=== PATIENT | female | born 1950 | race Caucasian/White ===

== ENCOUNTER 2016-05-18 07:30 | Inpatient (IN) | payer MEDICARE, BC ==
[~2016-05-18 07:30] MED LIST: Lactated Ringers 1,000 ML IV SCH; ceFAZolin 2 GM in Sodium Chloride 0.9% 100 ML IV ONE; ceFAZolin 2 GM in Sodium Chloride 0.9% 50 ML IV ONE
[2016-05-18] MEDS ORDERED: Ropivacaine 49.25 ML, Ketorolac 30 MG, EPINEPHrine 0.5 MG, cloNIDine 80 MCG, Sodium Chl... INJECT SCH ×5 (07:45)
[2016-05-18] MEDS ORDERED: Tranexamic Acid 1,000 MG in Sodium Chloride 0.9% 50 ML IV SCH (08:00)
[2016-05-18] MEDS ORDERED: Gentamicin 40 MG/ML 2 ML Vial ONE ×2 (08:44→08:50)
[2016-05-18] MEDS ORDERED: Propofol 200 MG/20 ML SDV ONE ×3 (09:15→10:27)
[2016-05-18] MEDS ORDERED: Midazolam 1 MG/ML 2 ML SDV ONE (09:15)
[2016-05-18] MEDS ORDERED: fentaNYL 100 MCG/2 ML SDV ONE (09:15)
[2016-05-18] MEDS ORDERED: Ondansetron 4 MG/2 ML SDV ONE (09:16)
[2016-05-18] MEDS ORDERED: Bisacodyl 5 MG Tab PO PRN (09:29)
[2016-05-18] MEDS ORDERED: Sennosides 8.6 MG Tab PO PRN (09:29)
[2016-05-18] MEDS ORDERED: Ketorolac 30 MG/ML SDV IVPUSH PRN (09:29)
[2016-05-18] MEDS ORDERED: Zolpidem 5 MG Tab PO PRN (09:29)
[2016-05-18] MEDS ORDERED: diphenhydrAMINE 50 MG/ML SDV IVPUSH PRN (09:29)
[2016-05-18] MEDS ORDERED: Docusate Sodium 100 MG Cap PO PRN (09:29)
[2016-05-18] MEDS ORDERED: Naloxone 0.4 MG/ML SDV IVPUSH PRN (09:29)
[2016-05-18] MEDS ORDERED: Bupivacaine 0.5% 50 ML MDV INJECT ONE (09:29)
[2016-05-18] MEDS ORDERED: Acetaminophen/oxyCODONE 325-5 MG Tab PO PRN (09:29)
[2016-05-18] MEDS ORDERED: Magnesium Hydroxide 400 MG/5 ML Susp 30 ML Cup PO PRN (09:29)
[2016-05-18] MEDS ORDERED: Morphine 2 MG/ML Syringe IVPUSH PRN (09:29)
[2016-05-18] MEDS ORDERED: Aluminum Hydroxide/Magnesium Hydroxide/Simethicone Susp 30 ML Cup PO PRN (09:29)
[2016-05-18] MEDS: Tranexamic Acid 1,000 MG in Sodium Chloride 0.9% 50 ML IV SCH ×2 (09:45→11:56)
[2016-05-18] MEDS ORDERED: ceFAZolin 2 GM in Premix Bag 1 BAG IV SCH ×2 (12:00→14:00)
--- NOTE | 2016-05-18 12:30 | CR ---
Knee 1V or 2V Lt HISTORY: Postop COMPARISON: MRI 04/26/2016. FINDINGS: Total left knee arthroplasty change. Excellent alignment. Tiny effusion. No acute fracture .
[2016-05-18] MEDS: Ketorolac 30 MG/ML SDV IVPUSH PRN ×2 (14:52→22:34)
[2016-05-18] MEDS: Ondansetron 4 MG/2 ML SDV IVPUSH PRN ×2 (15:22→21:17)
[2016-05-18] MEDS: traMADol 50 MG Tab PO PRN (15:55)
--- NOTE | 2016-05-18 16:06 | PCM.PN ---
- General Info Date of Service: 05/18/16 Functional Status: Reports: pain controlled - Review of Systems General: Denies: fever Musculoskeletal: Reports: joint pain Systems Review Comment:: no acute events since surgery other than a recent increase in her knee pain. Uneventful surgery. No complaints of shortness of breath or chest pain at this time. No numbness or tingling in her left lower extremity. She reports moderately severe pain at this time and has recently received a couple of different pain medications. Vital signs have been stable other than mild hypertension. - Patient Data Vitals - most recent: Last Vital Signs Temp 36.6 C 05/18/16 14:00 Pulse 83 05/18/16 14:59 Resp 16 05/18/16 14:30 BP 197/90 H 05/18/16 14:59 Pulse Ox 99 05/18/16 14:59 Weight - most recent: 104.071 kg I&O - last 24 hours: Intake & Output 05/18/16 05/18/16 05/18/16 06:59 14:59 22:59 Output Total 150 Balance -150 Lab Results last 24 hrs: Laboratory Results - last 24 hr 05/18/16 Range/Units 08:35 Blood Type O POSITIVE Gel Antibody Screen Negative Med Orders - Current: Current Medications Al Hydroxide/Mg Hydroxide (Mag-Al Plus) 30 ml PO Q4H PRN PRN Reason: Constipation Aspirin (Ecotrin) 325 mg PO BID [facility] Bisacodyl (Dulcolax) 10 mg PO DAILY PRN PRN Reason: Constipation Diazepam (Valium) 5 mg IVPUSH Q6H PRN PRN Reason: Spasms Diphenhydramine HCl (Benadryl) 25 mg IVPUSH Q4H PRN PRN Reason: Itching Docusate Sodium (Colace) 100 mg PO BID PRN PRN Reason: Constipation Lactated Ringer's (Ringers, Lactated) 1,000 mls @ 100 mls/hr IV ASDIRECTED [facility] Cefazolin Sodium 2 gm/ Sodium (Chloride) 50 mls @ 100 mls/hr IV Q8H [facility] Stop: 05/19/16 09:29 Ketorolac Tromethamine (Toradol) 30 mg IVPUSH Q8H PRN PRN Reason: Pain Stop: 05/23/16 09:32 Last Admin: 05/18/16 14:52 Dose: 30 mg Magnesium Hydroxide (Milk Of Magnesia) 30 ml PO BID PRN PRN Reason: Constipation Morphine Sulfate (Morphine) 2 mg IVPUSH Q2H PRN PRN Reason: Pain Last Admin: 05/18/16 14:56 Dose: 2 mg Non-Formulary Medication (Losartan [Cozaar]) 100 mg PO DAILY [facility] Ondansetron HCl (Zofran) 8 mg IVPUSH Q4H PRN PRN Reason: Nausea/Vomiting Last Admin: 05/18/16 15:22 Dose: 8 mg Oxycodone/Acetaminophen (Percocet 325-5 Mg) 2 tab PO Q4H PRN PRN Reason: Pain Pantoprazole Sodium (Protonix) 40 mg PO ACBREAKFAST [facility] Senna (Senna) 8.6 mg PO BID PRN PRN Reason: Constipation Sodium Chloride (Saline Flush) 10 ml FLUSH DAILY [facility] Tramadol HCl (Ultram) 100 mg PO Q6H PRN PRN Reason: Pain Last Admin: 05/18/16 15:55 Dose: 100 mg Zolpidem Tartrate (Ambien) 5 mg PO BEDTIME PRN PRN Reason: Sleep Discontinued Medications Aspirin (Ecotrin) 325 mg PO BID [facility] Bupivacaine HCl (Marcaine 0.5%) 3 ml INJECT ONETIME ONE Stop: 05/18/16 09:30 Ropivacaine 49.25 ml/Ketorolac Tromethamine 30 mg/Epinephrine HCl 0.5 mg/ Clonidine HCl 80 mcg/ Sodium Chloride 48.45 ml 0 ml INJECT ASDIRECTED [facility] Stop: 05/18/16 09:30 Last Admin: 05/18/16 11:17 Dose: 100 syringe Fentanyl (Sublimaze) Confirm Administered Dose 100 mcg .ROUTE .STK-MED ONE Stop: 05/18/16 09:16 Gentamicin Sulfate (Gentamicin) Confirm Administered Dose 240 mg .ROUTE .STK- MED ONE Stop: 05/18/16 08:45 Gentamicin Sulfate (Gentamicin) Confirm Administered Dose 240 mg .ROUTE .STK- MED ONE Stop: 05/18/16 08:51 Last Admin: 05/18/16 10:14 Dose: 240 mg Lactated Ringer's (Ringers, Lactated) 1,000 mls @ 100 mls/hr IV ASDIRECTED [facility] Last Admin: 05/18/16 09:01 Dose: 100 mls/hr Cefazolin Sodium 2 gm/ Sodium (Chloride) 50 mls @ 100 mls/hr IV ONETIME ONE Stop: 05/18/16 07:59 Last Admin: 05/18/16 09:35 Dose: 100 mls/hr Tranexamic Acid 1,000 mg/ (Sodium Chloride) 60 mls @ 240 mls/hr IV Q3H [facility] Stop: 05/18/16 12:14 Last Admin: 05/18/16 11:56 Dose: 240 mls/hr Cefazolin Sodium/Dextrose 2 gm (/ Premix) 50 mls @ 100 mls/hr IV Q8H [facility] Stop: 05/19/16 04:29 Ketorolac Tromethamine (Toradol) 30 mg IVPUSH Q8H PRN PRN Reason: Pain Stop: 05/23/16 09:32 Midazolam HCl (Versed 1 Mg/Ml) Confirm Administered Dose 2 mg .ROUTE .STK-MED ONE Stop: 05/18/16 09:16 Naloxone HCl (Narcan) 0.1 mg IVPUSH ASDIRECTED PRN PRN Reason: Oversedation Stop: 05/18/16 09:30 Ondansetron HCl (Zofran) Confirm Administered Dose 4 mg .ROUTE .STK-MED ONE Stop: 05/18/16 09:17 Oxycodone/Acetaminophen (Percocet 325-5 Mg) 2 tab PO Q4H PRN PRN Reason: Pain Propofol (Diprivan 20 Ml) Confirm Administered Dose 200 mg .ROUTE .STK-MED ONE Stop: 05/18/16 09:16 Propofol (Diprivan 20 Ml) Confirm Administered Dose 200 mg .ROUTE .STK-MED ONE Stop: 05/18/16 09:59 Propofol (Diprivan 20 Ml) Confirm Administered Dose 200 mg .ROUTE .STK-MED ONE Stop: 05/18/16 10:28 Triamcinolone Acetonide (Kenalog-40) 80 mg IARTIC ONETIME ONE Stop: 05/18/16 09:30 - Exam Quality Assessment: supplemental oxygen General: alert, oriented, cooperative, no acute distress Neck: supple Lungs: Normal respiratory effort Cardiovascular: murmurs Abdomen: soft, no distension Extremities: no edema, other (left knee wrapped with AL and covered with ice pack) Skin: warm, dry Psy/Mental Status: alert, normal affect - Problem List & Annotations (1) Essential hypertension SNOMED Code(s): 28599053 Code(s): I10 - ESSENTIAL (PRIMARY) HYPERTENSION Status: Chronic Current Visit: Yes (2) Primary osteoarthritis of left knee SNOMED Code(s): 393796040, 831516618 Code(s): M17.12 - UNILATERAL PRIMARY OSTEOARTHRITIS, LEFT KNEE Status: Chronic Current Visit: No - Problem List Review Problem List Initiated/Reviewed/Updated: Yes - My Orders Last 24 Hours: My Active Orders 05/19/16 07:30 Pantoprazole [Protonix] 40 mg PO ACBREAKFAST 05/19/16 09:00 Losartan [Cozaar] 100 mg PO DAILY amLODIPine [Norvasc] 5 mg PO DAILY - Plan Plan:: Assessment and Plan - Primary osteoarthritis of the left knee - status post left total knee arthroplasty. Pain has increased following surgery after the spinal anesthesia wore off. Clinically looks well otherwise. No neurologic deficits on examination. -Pain control -Postop cares per orthopedic service Essential hypertension - blood pressure well controlled by history. -Usual medications will be continued Breezy Chamberlain M.D.
[2016-05-18] MEDS: ceFAZolin 2 GM in Sodium Chloride 0.9% 50 ML IV SCH (16:55)
[2016-05-18] MEDS: Lactated Ringers 1,000 ML IV SCH (17:29)
--- NOTE | 2016-05-18 19:17 | OR ---
DATE OF PROCEDURE: 05/18/2016 PREOPERATIVE DIAGNOSIS: Left knee primary osteoarthritis. POSTOPERATIVE DIAGNOSIS: Left knee primary osteoarthritis. PROCEDURE: Left knee total knee arthroplasty. ACADEMIC SERVICES COORDINATOR: BEATRICE Cheng. ANESTHESIA: Spinal plus conscious sedation. ESTIMATED BLOOD LOSS: 50 mL. FLUID: Lactated Ringer solution. COMPLICATIONS: None. SPECIMEN: None. DISCHARGE DISPOSITION: Stable to PACU. INSTRUMENTATION: Andi Persona size 10 femur, size E tibia and 10 mm polyethylene insert. A 38 mm patella polyethylene. HISTORY AND INDICATIONS FOR THE PROCEDURE: The patient was seen preoperatively in the clinic. Preoperative imaging confirmed the above-mentioned diagnosis. She had failed nonoperative treatment. Risks and benefits of the procedure were explained to the patient. Informed consent was obtained. DETAILS OF PROCEDURE: The patient was seen preoperatively by myself and the anesthesia staff in the preoperative holding area where the operative site was marked. She was brought to the operative suite by the anesthesia staff where spinal anesthesia plus conscious sedation was administered. All extremities were found to be well padded. A sterile Bo catheter was placed. A well-padded tourniquet was placed on the left thigh. The left lower extremity was then prepped and draped in a sterile manner. Time-out was called identifying the correct patient, correct procedure, the correct site, and antibiotics had been given with appropriate period of time. A midline incision was made approximately 3.5 three fingerbreadths proximal to the patella down to the level of the tibial tubercle and carried down to the deep fascia. Bleeding was controlled with Bovie as well as Aquamantys cautery unit. A medial parapatellar arthrotomy was made. The medial proximal tibia was then exposed with Bovie electrocautery. I then performed infrapatellar fat pad removal followed by a full synovectomy. We then everted the tibia, then flexed the knee up and then removed some soft tissue around the patella and then made 2 perpendicular saw cuts to remove the patella. We then measured a 38 patella polyethylene. We then clamped our guide in place, drilled 3 holes then we placed the trial patella. We then flexed the knee up again and protecting soft tissues with 2 sharp Homans medially and laterally, reamed the distal femur and then inserted the intramedullary guide at 3 degrees valgus left. We then pinned the guide in place, then removed the intramedullary andrew then sawed our distal cut. We removed the guide plus our pins and then I removed the ACL and PCL as well as a portion of the medial and lateral meniscus and then placed our posterior condylar guide, this measured a size 10. I then drilled through the guide and then removed the guide and placed a 10 chamfer block and then protecting the medial collateral ligament with a zero retractor and lateral collateral ligament with a sharp Hohmann made our anterior and posterior chamfer cuts. After this had been accomplished, I then removed more the medial and lateral meniscus. I then used a blunt Hohmann to interiorize the tibia and then used an extramedullary guide to make our tibial cut in line with the tibial tubercle and 2nd metatarsal while protecting the soft tissues and the collateral ligaments with retractors. I then removed the proximal tibia bone with an osteotome and a rongeur as well as Bovie electrocautery. We then placed an E tibia base plate and put this in position, which was in good alignment and then we placed a femoral trial, this was found to be a regular femur. I then drilled the lugs and then made my distal block cut with a reciprocating saw. I then inserted our 10 mm polyethylene trial in tibia this provided excellent stability throughout 0 to 140 degrees range of motion. We then removed all of our components and copiously irrigated with saline, dried it and then applied our components with cement. I removed any extra cement. We placed our tibial polyethylene trial and in full extension while it dried. We took the tourniquet down at 42 minutes. Any bleeding was controlled. We then allowed this to dry and after drying, we then removed the tibial polyethylene trial and then using a small osteotome and Irma's removed any extra bone cement. I did take a great deal of time and put it through a range of motion to make sure that there was no bone cement left. After this has been accomplished, I inserted our 10 mm final polyethylene insert in the tibia, this provided excellent stability and excellent range of motion. We then copiously irrigated it again and then closed our parapatellar arthrotomy with two #5 Ethibond sutures followed by a watertight [id number] Vicryl pops, followed by 2-0 Vicryl subcutaneous sutures followed by a zip line, followed by sterile dressing. The patient was then taken to the PACU in stable condition. Topher Mcdaniel DO /[id number]
[2016-05-18] MEDS: Acetaminophen/oxyCODONE 325-5 MG Tab PO PRN (20:32)
[2016-05-18] MEDS ORDERED: Aspirin 325 MG Tab.EC PO SCH (21:00)
[2016-05-19] MEDS: ceFAZolin 2 GM in Sodium Chloride 0.9% 50 ML IV SCH ×2 (00:55→08:17)
[2016-05-19] MEDS: traMADol 50 MG Tab PO PRN ×2 (00:59→14:56)
[2016-05-19] MEDS: Ondansetron 4 MG/2 ML SDV IVPUSH PRN ×4 (03:02→19:38)
[2016-05-19] MEDS: Lactated Ringers 1,000 ML IV SCH ×2 (05:18→17:01)
[2016-05-19] MEDS: Pantoprazole 40 MG Tab.CR PO SCH (07:44)
[2016-05-19] MEDS: Sodium Chloride 0.9% 10 ML Syringe FLUSH SCH (08:13)
[2016-05-19] MEDS: Ketorolac 30 MG/ML SDV IVPUSH PRN ×2 (08:29→22:57)
[2016-05-19] MEDS ORDERED: Non-Formulary Medication 1 Each (Losartan [Cozaar] 100 MG) PO SCH (09:00)
[2016-05-19] MEDS ORDERED: Scopolamine 1.5 MG Transdermal Patch TRDERM SCH (10:15)
[2016-05-19] MEDS: Losartan 50 MG Tab PO SCH (10:50)
[2016-05-19] MEDS: Aspirin 325 MG Tab.EC PO SCH ×2 (10:50→21:11)
[2016-05-19] MEDS: amLODIPine 5 MG Tab PO SCH (10:51)
--- NOTE | 2016-05-19 16:03 | PCM.PN ---
- General Info Date of Service: 05/19/16 Functional Status: Reports: pain controlled. Denies: tolerating diet, ambulating - Review of Systems Gastrointestinal: Reports: Nausea, Vomiting Systems Review Comment:: difficulty with some nausea and vomiting overnight. Symptoms seem to be the worst when she is changing positions. Sitting up and standing up are the worst. More comfortable when she's laying down. Knee pain has been fairly minimal at this point. She has not had any fevers. Vital signs have all been stable. - Patient Data Vitals - most recent: Last Vital Signs Temp 37.0 C 05/19/16 15:07 Pulse 78 05/19/16 15:07 Resp 16 05/19/16 15:07 BP 143/77 H 05/19/16 15:07 Pulse Ox 94 L 05/19/16 15:07 Weight - most recent: 104.071 kg I&O - last 24 hours: Intake & Output 05/19/16 05/19/16 05/19/16 06:59 14:59 22:59 Intake Total 1457 50 Output Total 810 725 Balance 647 -675 Lab Results last 24 hrs: Laboratory Results - last 24 hr 05/19/16 05/19/16 Range/Units 06:00 06:00 WBC 11.1 H (4.5-11.0) K/uL RBC 4.37 (3.30-5.50) M/uL Hgb 13.0 (12.0-15.0) g/dL Hct 40.5 (36.0-48.0) % MCV 93 (80-98) fL MCH 30 (27-31) pg MCHC 32 (32-36) % Plt Count 219 (150-400) K/uL Neut % (Auto) 83 H (36-66) % Lymph % (Auto) 9 L (24-44) % Camp % (Auto) 8 H (2-6) % Eos % (Auto) 0 L (2-4) % Baso % (Auto) 0 (0-1) % Sodium 140 (140-148) mmol/L Potassium 4.1 (3.6-5.2) mmol/L Chloride 104 (100-108) mmol/L Carbon Dioxide 28 (21-32) mmol/L Anion Gap 7.9 (5.0-14.0) mmol/L BUN 10 (7-18) mg/dL Creatinine 0.8 (0.6-1.0) mg/dL Est Cr Clr Drug Dosing 75.81 mL/min Estimated GFR (MDRD) > 60 (>60) Glucose 131 H (74-106) mg/dL Calcium 8.4 L (8.5-10.1) mg/dL Total Bilirubin 0.6 (0.2-1.0) mg/dL AST 23 (15-37) U/L ALT 33 (12-78) U/L Alkaline Phosphatase 131 H (46-116) U/L Total Protein 6.8 (6.4-8.2) g/dL Albumin 3.4 (3.4-5.0) g/dL Globulin 3.4 (2.3-3.5) g/dL Albumin/Globulin Ratio 1.0 L (1.2-2.2) Med Orders - Current: Current Medications Al Hydroxide/Mg Hydroxide (Mag-Al Plus) 30 ml PO Q4H PRN PRN Reason: Constipation Amlodipine Besylate (Norvasc) 5 mg PO DAILY [facility] Last Admin: 05/19/16 10:51 Dose: Not Given Aspirin (Ecotrin) 325 mg PO BID [facility] Last Admin: 05/19/16 10:50 Dose: Not Given Bisacodyl (Dulcolax) 10 mg PO DAILY PRN PRN Reason: Constipation Diazepam (Valium) 5 mg IVPUSH Q6H PRN PRN Reason: Spasms Last Admin: 05/18/16 16:54 Dose: 5 mg Diphenhydramine HCl (Benadryl) 25 mg IVPUSH Q4H PRN PRN Reason: Itching Docusate Sodium (Colace) 100 mg PO BID PRN PRN Reason: Constipation Lactated Ringer's (Ringers, Lactated) 1,000 mls @ 100 mls/hr IV ASDIRECTED [facility] Last Admin: 05/19/16 05:18 Dose: 100 mls/hr Ketorolac Tromethamine (Toradol) 30 mg IVPUSH Q8H PRN PRN Reason: Pain Stop: 05/23/16 09:32 Last Admin: 05/19/16 08:29 Dose: 30 mg Losartan Potassium (Cozaar) 100 mg PO DAILY [facility] Last Admin: 05/19/16 10:50 Dose: Not Given Magnesium Hydroxide (Milk Of Magnesia) 30 ml PO BID PRN PRN Reason: Constipation Morphine Sulfate (Morphine) 2 mg IVPUSH Q2H PRN PRN Reason: Pain Last Admin: 05/18/16 14:56 Dose: 2 mg Scopolamine Patch (Check) 1 each TOP DAILY [facility] Ondansetron HCl (Zofran) 8 mg IVPUSH Q4H PRN PRN Reason: Nausea/Vomiting Last Admin: 05/19/16 11:51 Dose: 8 mg Oxycodone/Acetaminophen (Percocet 325-5 Mg) 2 tab PO Q4H PRN PRN Reason: Pain Last Admin: 05/18/16 20:32 Dose: 0.5 tab Pantoprazole Sodium (Protonix) 40 mg PO ACBREAKFAST [facility] Last Admin: 05/19/16 07:44 Dose: 40 mg Scopolamine (Transderm-Scop) 1.5 mg TRDERM Q72H [facility] Last Admin: 05/19/16 11:04 Dose: 1.5 mg Senna (Senna) 8.6 mg PO BID PRN PRN Reason: Constipation Sodium Chloride (Saline Flush) 10 ml FLUSH DAILY [facility] Last Admin: 05/19/16 08:13 Dose: 10 ml Tramadol HCl (Ultram) 100 mg PO Q6H PRN PRN Reason: Pain Last Admin: 05/19/16 14:56 Dose: 100 mg Zolpidem Tartrate (Ambien) 5 mg PO BEDTIME PRN PRN Reason: Sleep Discontinued Medications Aspirin (Ecotrin) 325 mg PO BID [facility] Bupivacaine HCl (Marcaine 0.5%) 3 ml INJECT ONETIME ONE Stop: 05/18/16 09:30 Last Admin: 05/18/16 18:32 Dose: Not Given Ropivacaine 49.25 ml/Ketorolac Tromethamine 30 mg/Epinephrine HCl 0.5 mg/ Clonidine HCl 80 mcg/ Sodium Chloride 48.45 ml 0 ml INJECT ASDIRECTED [facility] Stop: 05/18/16 09:30 Last Admin: 05/18/16 11:17 Dose: 100 syringe Fentanyl (Sublimaze) Confirm Administered Dose 100 mcg .ROUTE .STK-MED ONE Stop: 05/18/16 09:16 Gentamicin Sulfate (Gentamicin) Confirm Administered Dose 240 mg .ROUTE .STK- MED ONE Stop: 05/18/16 08:45 Gentamicin Sulfate (Gentamicin) Confirm Administered Dose 240 mg .ROUTE .STK- MED ONE Stop: 05/18/16 08:51 Last Admin: 05/18/16 10:14 Dose: 240 mg Lactated Ringer's (Ringers, Lactated) 1,000 mls @ 100 mls/hr IV ASDIRECTED [facility] Last Admin: 05/18/16 09:01 Dose: 100 mls/hr Cefazolin Sodium 2 gm/ Sodium (Chloride) 50 mls @ 100 mls/hr IV ONETIME ONE Stop: 05/18/16 07:59 Last Admin: 05/18/16 09:35 Dose: 100 mls/hr Tranexamic Acid 1,000 mg/ (Sodium Chloride) 60 mls @ 240 mls/hr IV Q3H [facility] Stop: 05/18/16 12:14 Last Admin: 05/18/16 11:56 Dose: 240 mls/hr Cefazolin Sodium/Dextrose 2 gm (/ Premix) 50 mls @ 100 mls/hr IV Q8H [facility] Stop: 05/19/16 04:29 Last Admin: 05/18/16 18:33 Dose: Not Given Cefazolin Sodium 2 gm/ Sodium (Chloride) 50 mls @ 100 mls/hr IV Q8H [facility] Stop: 05/19/16 09:29 Last Admin: 05/19/16 08:17 Dose: 100 mls/hr Ketorolac Tromethamine (Toradol) 30 mg IVPUSH Q8H PRN PRN Reason: Pain Stop: 05/23/16 09:32 Midazolam HCl (Versed 1 Mg/Ml) Confirm Administered Dose 2 mg .ROUTE .STK-MED ONE Stop: 05/18/16 09:16 Naloxone HCl (Narcan) 0.1 mg IVPUSH ASDIRECTED PRN PRN Reason: Oversedation Stop: 05/18/16 09:30 Ondansetron HCl (Zofran) Confirm Administered Dose 4 mg .ROUTE .STK-MED ONE Stop: 05/18/16 09:17 Oxycodone/Acetaminophen (Percocet 325-5 Mg) 2 tab PO Q4H PRN PRN Reason: Pain Propofol (Diprivan 20 Ml) Confirm Administered Dose 200 mg .ROUTE .STK-MED ONE Stop: 05/18/16 09:16 Propofol (Diprivan 20 Ml) Confirm Administered Dose 200 mg .ROUTE .STK-MED ONE Stop: 05/18/16 09:59 Propofol (Diprivan 20 Ml) Confirm Administered Dose 200 mg .ROUTE .STK-MED ONE Stop: 05/18/16 10:28 Triamcinolone Acetonide (Kenalog-40) 80 mg IARTIC ONETIME ONE Stop: 05/18/16 09:30 Last Admin: 05/18/16 18:32 Dose: Not Given - Exam Quality Assessment: No: supplemental oxygen General: alert, oriented, cooperative, mild distress Lungs: Normal respiratory effort Abdomen: soft, no distension, other (actively vomiting) Extremities: no edema Skin: warm, dry Psy/Mental Status: alert - Problem List & Annotations (1) Essential hypertension SNOMED Code(s): 57212155 Code(s): I10 - ESSENTIAL (PRIMARY) HYPERTENSION Status: Chronic Current Visit: Yes (2) Primary osteoarthritis of left knee SNOMED Code(s): 903657382, 635777097 Code(s): M17.12 - UNILATERAL PRIMARY OSTEOARTHRITIS, LEFT KNEE Status: Chronic Current Visit: No (3) Nausea and vomiting SNOMED Code(s): 69019397 Code(s): R11.2 - NAUSEA WITH VOMITING, UNSPECIFIED Status: Acute Current Visit: Yes Qualifiers: Vomiting type: unspecified Vomiting Intractability: non-intractable Qualified Code(s): R11.2 - Nausea with vomiting, unspecified - Problem List Review Problem List Initiated/Reviewed/Updated: Yes - My Orders Last 24 Hours: My Active Orders 05/19/16 07:30 Pantoprazole [Protonix] 40 mg PO ACBREAKFAST 05/19/16 09:00 Losartan [Cozaar] 100 mg PO DAILY amLODIPine [Norvasc] 5 mg PO DAILY 05/19/16 10:15 Scopolamine [Transderm-Scop] 1.5 mg TRDERM Q72H 05/20/16 09:00 Non-Formulary Medication [NF Drug] 1 each TOP DAILY - Plan Plan:: Assessment and Plan - Primary osteoarthritis of the left knee - status post left total knee arthroplasty. Pain very well controlled at this time. Possible contribution from pain medications to nausea and vomiting. -Pain control -Postop cares per orthopedic service Nausea with vomiting - suspect medication side effect with anesthesia and/or pain medications contributing. -Minimize pain meds as able, especially narcotics -Scopolamine patch Essential hypertension - blood pressure well controlled by history. -Usual medications will be continued Breezy Chamberlain M.D.
[2016-05-19] MEDS: Acetaminophen/oxyCODONE 325-5 MG Tab PO PRN ×2 (19:38→23:06)
[2016-05-20] MEDS: Acetaminophen/oxyCODONE 325-5 MG Tab PO PRN ×2 (03:43→11:02)
[2016-05-20] MEDS: Pantoprazole 40 MG Tab.CR PO SCH (07:06)
--- NOTE | 2016-05-20 08:19 | PCM.PN ---
- General Info Date of Service: 05/19/16 Admission Dx/Problem (Free Text): Destiny is a 65 year old female who is POD 1 from a total knee replacement on the left. She is having nausea. She is unable to move much due to vomiting. She is also having some pain at times. Functional Status: Reports: ambulating, urinating - Review of Systems General: Reports: no symptoms Musculoskeletal: Reports: leg pain Skin: Reports: no symptoms Neurological: Reports: dizziness Psychiatric: Reports: no symptoms - Patient Data Vitals - most recent: Last Vital Signs Temp 37.6 C 05/20/16 07:08 Pulse 78 05/20/16 07:08 Resp 14 05/20/16 07:08 BP 141/82 H 05/20/16 07:08 Pulse Ox 90 L 05/20/16 07:08 Weight - most recent: 229 lb 6.996 oz I&O - last 24 hours: Intake & Output 05/19/16 05/20/16 05/20/16 22:59 06:59 14:59 Intake Total 1234 800 Output Total 250 500 Balance 984 300 Lab Results last 24 hrs: Laboratory Results - last 24 hr 05/20/16 05/20/16 Range/Units 05:00 05:00 WBC 8.9 (4.5-11.0) K/uL RBC 4.02 (3.30-5.50) M/uL Hgb 12.0 (12.0-15.0) g/dL Hct 37.5 (36.0-48.0) % MCV 93 (80-98) fL MCH 30 (27-31) pg MCHC 32 (32-36) % Plt Count 192 (150-400) K/uL Neut % (Auto) 69 H (36-66) % Lymph % (Auto) 17 L (24-44) % [place] % (Auto) 13 H (2-6) % Eos % (Auto) 2 (2-4) % Baso % (Auto) 0 (0-1) % Sodium 138 L (140-148) mmol/L Potassium 3.9 (3.6-5.2) mmol/L Chloride 102 (100-108) mmol/L Carbon Dioxide 30 (21-32) mmol/L Anion Gap 9.9 (5.0-14.0) mmol/L BUN 10 (7-18) mg/dL Creatinine 0.9 (0.6-1.0) mg/dL Est Cr Clr Drug Dosing 67.39 mL/min Estimated GFR (MDRD) > 60 (>60) Glucose 102 (74-106) mg/dL Calcium 8.0 L (8.5-10.1) mg/dL Total Bilirubin 0.8 (0.2-1.0) mg/dL AST 21 (15-37) U/L ALT 23 (12-78) U/L Alkaline Phosphatase 112 (46-116) U/L Total Protein 6.4 (6.4-8.2) g/dL Albumin 3.1 L (3.4-5.0) g/dL Globulin 3.3 (2.3-3.5) g/dL Albumin/Globulin Ratio 0.9 L (1.2-2.2) Med Orders - Current: Current Medications Al Hydroxide/Mg Hydroxide (Mag-Al Plus) 30 ml PO Q4H PRN PRN Reason: Constipation Amlodipine Besylate (Norvasc) 5 mg PO DAILY [facility] Last Admin: 05/19/16 10:51 Dose: Not Given Aspirin (Ecotrin) 325 mg PO BID [facility] Last Admin: 05/19/16 21:11 Dose: Not Given Bisacodyl (Dulcolax) 10 mg PO DAILY PRN PRN Reason: Constipation Diazepam (Valium) 5 mg IVPUSH Q6H PRN PRN Reason: Spasms Last Admin: 05/18/16 16:54 Dose: 5 mg Diphenhydramine HCl (Benadryl) 25 mg IVPUSH Q4H PRN PRN Reason: Itching Docusate Sodium (Colace) 100 mg PO BID PRN PRN Reason: Constipation Last Admin: 05/19/16 21:11 Dose: 100 mg Ketorolac Tromethamine (Toradol) 30 mg IVPUSH Q8H PRN PRN Reason: Pain Stop: 05/23/16 09:32 Last Admin: 05/19/16 22:57 Dose: 30 mg Losartan Potassium (Cozaar) 100 mg PO DAILY [facility] Last Admin: 05/19/16 10:50 Dose: Not Given Magnesium Hydroxide (Milk Of Magnesia) 30 ml PO BID PRN PRN Reason: Constipation Morphine Sulfate (Morphine) 2 mg IVPUSH Q2H PRN PRN Reason: Pain Last Admin: 05/18/16 14:56 Dose: 2 mg Scopolamine Patch (Check) 1 each TOP DAILY [facility] Ondansetron HCl (Zofran) 8 mg IVPUSH Q4H PRN PRN Reason: Nausea/Vomiting Last Admin: 05/19/16 19:38 Dose: 8 mg Oxycodone/Acetaminophen (Percocet 325-5 Mg) 2 tab PO Q4H PRN PRN Reason: Pain Last Admin: 05/20/16 03:43 Dose: 0.5 tab Pantoprazole Sodium (Protonix) 40 mg PO ACBREAKFAST [facility] Last Admin: 05/20/16 07:06 Dose: 40 mg Scopolamine (Transderm-Scop) 1.5 mg TRDERM Q72H [facility] Last Admin: 05/19/16 11:04 Dose: 1.5 mg Senna (Senna) 8.6 mg PO BID PRN PRN Reason: Constipation Sodium Chloride (Saline Flush) 10 ml FLUSH DAILY [facility] Last Admin: 05/19/16 08:13 Dose: 10 ml Tramadol HCl (Ultram) 100 mg PO Q6H PRN PRN Reason: Pain Last Admin: 05/19/16 14:56 Dose: 100 mg Zolpidem Tartrate (Ambien) 5 mg PO BEDTIME PRN PRN Reason: Sleep Discontinued Medications Aspirin (Ecotrin) 325 mg PO BID [facility] Bupivacaine HCl (Marcaine 0.5%) 3 ml INJECT ONETIME ONE Stop: 05/18/16 09:30 Last Admin: 05/18/16 18:32 Dose: Not Given Ropivacaine 49.25 ml/Ketorolac Tromethamine 30 mg/Epinephrine HCl 0.5 mg/ Clonidine HCl 80 mcg/ Sodium Chloride 48.45 ml 0 ml INJECT ASDIRECTED [facility] Stop: 05/18/16 09:30 Last Admin: 05/18/16 11:17 Dose: 100 syringe Fentanyl (Sublimaze) Confirm Administered Dose 100 mcg .ROUTE .[facility]K-MED ONE Stop: 05/18/16 09:16 Gentamicin Sulfate (Gentamicin) Confirm Administered Dose 240 mg .ROUTE .STK- MED ONE Stop: 05/18/16 08:45 Gentamicin Sulfate (Gentamicin) Confirm Administered Dose 240 mg .ROUTE .STK- MED ONE Stop: 05/18/16 08:51 Last Admin: 05/18/16 10:14 Dose: 240 mg Lactated Ringer's (Ringers, Lactated) 1,000 mls @ 100 mls/hr IV ASDIRECTED [facility] Last Admin: 05/18/16 09:01 Dose: 100 mls/hr Cefazolin Sodium 2 gm/ Sodium (Chloride) 50 mls @ 100 mls/hr IV ONETIME ONE Stop: 05/18/16 07:59 Last Admin: 05/18/16 09:35 Dose: 100 mls/hr Tranexamic Acid 1,000 mg/ (Sodium Chloride) 60 mls @ 240 mls/hr IV Q3H [facility] Stop: 05/18/16 12:14 Last Admin: 05/18/16 11:56 Dose: 240 mls/hr Lactated Ringer's (Ringers, Lactated) 1,000 mls @ 100 mls/hr IV ASDIRECTED [facility] Last Admin: 05/19/16 17:01 Dose: 100 mls/hr Cefazolin Sodium/Dextrose 2 gm (/ Premix) 50 mls @ 100 mls/hr IV Q8H [facility] Stop: 05/19/16 04:29 Last Admin: 05/18/16 18:33 Dose: Not Given Cefazolin Sodium 2 gm/ Sodium (Chloride) 50 mls @ 100 mls/hr IV Q8H [facility] Stop: 05/19/16 09:29 Last Admin: 05/19/16 08:17 Dose: 100 mls/hr Ketorolac Tromethamine (Toradol) 30 mg IVPUSH Q8H PRN PRN Reason: Pain Stop: 05/23/16 09:32 Midazolam HCl (Versed 1 Mg/Ml) Confirm Administered Dose 2 mg .ROUTE .STK-MED ONE Stop: 05/18/16 09:16 Naloxone HCl (Narcan) 0.1 mg IVPUSH ASDIRECTED PRN PRN Reason: Oversedation Stop: 05/18/16 09:30 Ondansetron HCl (Zofran) Confirm Administered Dose 4 mg .ROUTE .STK-MED ONE Stop: 05/18/16 09:17 Oxycodone/Acetaminophen (Percocet 325-5 Mg) 2 tab PO Q4H PRN PRN Reason: Pain Propofol (Diprivan 20 Ml) Confirm Administered Dose 200 mg .ROUTE .[facility]K-MED ONE Stop: 05/18/16 09:16 Propofol (Diprivan 20 Ml) Confirm Administered Dose 200 mg .ROUTE .STK-MED ONE Stop: 05/18/16 09:59 Propofol (Diprivan 20 Ml) Confirm Administered Dose 200 mg .ROUTE .STK-MED ONE Stop: 05/18/16 10:28 Triamcinolone Acetonide (Kenalog-40) 80 mg IARTIC ONETIME ONE Stop: 05/18/16 09:30 Last Admin: 05/18/16 18:32 Dose: Not Given - Exam General: alert, oriented Extremities: normal pulses, no calf tenderness Peripheral Pulses: 2+: dorsalis pedis (L), dorsalis pedis (R) Skin: warm, dry, intact Wound/Incisions: healing well, dressing dry and intact Neurological: no new focal deficit Psy/Mental Status: alert, normal affect - Problem List Review Problem List Initiated/Reviewed/Updated: Yes - My Orders Last 24 Hours: My Active Orders 05/19/16 09:00 Aspirin [Ecotrin] 325 mg PO BID Sodium Chloride 0.9% [Saline Flush] 10 ml FLUSH DAILY 05/20/16 08:15 Ready for Discharge [RC] PER UNIT ROUTINE 05/21/16 05:15 CBC WITH AUTO DIFF [HEME] DAILY COMPREHENSIVE METABOLIC PN,CMP [CHEM] DAILY 05/22/16 05:15 CBC WITH AUTO DIFF [HEME] DAILY COMPREHENSIVE METABOLIC PN,CMP [CHEM] DAILY - Plan Plan:: Assessment and Plan - Primary osteoarthritis of the left knee - status post left total knee arthroplasty. Pain very well controlled at this time. Patient having issues with nausea at this time. We will see how she is doing tomorrow due to unable to ambulate as much due to vomiting. She will continue to advance activity as tolerated.
--- NOTE | 2016-05-20 08:22 | PCM.DCSUM1 ---
Discharge Summary - Hospital Course Free Text/Narrative:: Destiny is a 65 year old female who is POD 2 from a left total knee replacement. She is doing well. She is having no issues at this time. Her nausea is much better. She is moving well. She is having good pain management. She is ready to go home. - Discharge Data Discharge Date: 05/20/16 Discharge Disposition: Home, Self-Care 01 Condition: Good - Patient Summary/Data Consults: Consultations 05/18/16 09:32 Consult to Physician [CONS] Routine Consulting Provider: Breezy Chamberlain Call Completed to Consulting Physician: Yes OT Evaluation and Treatment [CONS] Routine Please Evaluate and Treat. OT Reason for Consult: Strengthening This query below is only for informational purposes and is not editable. PT Evaluation and Treatment [CONS] Routine Please Evaluate and Treat. PT Reason for Consult: Strengthening This query below is only for informational purposes and is not editable. Recommended Follow-up Testing/Procedures: Destiny is to follow up in 2 weeks with ortho. - Patient Instructions Diet: Heart Healthy Diet, Usual Diet as Tolerated Activity: Apply Ice Showering/Bathing: May Shower Wound/Incision Care: Keep Operative Site/Wound Site Clean and Dry, Change Dressing Daily Notify Provider of: Fever, Increased Pain, Swelling and Redness, Drainage - Discharge Plan Prescriptions/Med Rec: Acetaminophen/oxyCODONE [Percocet 325-5 MG] 1 - 2 tab PO Q4H PRN #120 tablet PRN Reason: Pain Aspirin [Ecotrin] 325 mg PO BID #60 tab.ec Docusate Sodium [Colace] 100 mg PO BID PRN #60 cap PRN Reason: Constipation Home Medications: Home Meds [place]-3/DHA/Epa/Fish Oil [Fish Oil Dr 500 mg Softgel] 1 each PO DAILY 01/28/14 [ History] Multivitamin [[place] Multivitamin] 2 each PO DAILY 01/31/16 [History] amLODIPine Besylate [Amlodipine Besylate] 5 mg PO DAILY 01/31/16 [History] Losartan [Cozaar] 100 mg PO DAILY 02/04/16 [History] Ibuprofen 200 mg PO ASDIRECTED PRN 05/03/16 [History] Cetirizine [ZyrTEC] 10 mg PO DAILY 05/18/16 [History] Omeprazole 40 mg PO DAILY 05/18/16 [History] Acetaminophen/oxyCODONE [Percocet 325-5 MG] 1 - 2 tab PO Q4H PRN #120 tablet 05/07 [Rx] Aspirin [Ecotrin] 325 mg PO BID #60 tab.ec 05/20/16 [Rx] Docusate Sodium [Colace] 100 mg PO BID PRN #60 cap 05/20/16 [Rx] Referrals: Topher Mcdaniel DO [Physician] - (Patient is to follow up with ortho in 2 weeks. ) - Discharge Summary/Plan Comment Discharge Summary/Plan Comment: Patient is to discharge home. She is to follow up with ortho in 2 weeks. She may shower but no soaking at this time. She is to continue to take her pain medications as prescribed. She is to call with any questions. - Patient Data Vitals - Most Recent: Last Vital Signs Temp 37.6 C 05/20/16 07:08 Pulse 78 05/20/16 07:08 Resp 14 05/20/16 07:08 BP 141/82 H 05/20/16 07:08 Pulse Ox 90 L 05/20/16 07:08 Weight - Most Recent: 229 lb 6.996 oz I&O - Last 24 hours: Intake & Output 05/19/16 05/20/16 05/20/16 22:59 06:59 14:59 Intake Total 1234 800 Output Total 250 500 Balance 984 300 Lab Results - Last 24 hrs: Laboratory Results - last 24 hr 05/20/16 05/20/16 Range/Units 05:00 05:00 WBC 8.9 (4.5-11.0) K/uL RBC 4.02 (3.30-5.50) M/uL Hgb 12.0 (12.0-15.0) g/dL Hct 37.5 (36.0-48.0) % MCV 93 (80-98) fL MCH 30 (27-31) pg MCHC 32 (32-36) % Plt Count 192 (150-400) K/uL Neut % (Auto) 69 H (36-66) % Lymph % (Auto) 17 L (24-44) % [place] % (Auto) 13 H (2-6) % Eos % (Auto) 2 (2-4) % Baso % (Auto) 0 (0-1) % Sodium 138 L (140-148) mmol/L Potassium 3.9 (3.6-5.2) mmol/L Chloride 102 (100-108) mmol/L Carbon Dioxide 30 (21-32) mmol/L Anion Gap 9.9 (5.0-14.0) mmol/L BUN 10 (7-18) mg/dL Creatinine 0.9 (0.6-1.0) mg/dL Est Cr Clr Drug Dosing 67.39 mL/min Estimated GFR (MDRD) > 60 (>60) Glucose 102 (74-106) mg/dL Calcium 8.0 L (8.5-10.1) mg/dL Total Bilirubin 0.8 (0.2-1.0) mg/dL AST 21 (15-37) U/L ALT 23 (12-78) U/L Alkaline Phosphatase 112 (46-116) U/L Total Protein 6.4 (6.4-8.2) g/dL Albumin 3.1 L (3.4-5.0) g/dL Globulin 3.3 (2.3-3.5) g/dL Albumin/Globulin Ratio 0.9 L (1.2-2.2) Med Orders - Current: Current Medications Al Hydroxide/Mg Hydroxide (Mag-Al Plus) 30 ml PO Q4H PRN PRN Reason: Constipation Amlodipine Besylate (Norvasc) 5 mg PO DAILY [facility] Last Admin: 05/19/16 10:51 Dose: Not Given Aspirin (Ecotrin) 325 mg PO BID [facility] Last Admin: 05/19/16 21:11 Dose: Not Given Bisacodyl (Dulcolax) 10 mg PO DAILY PRN PRN Reason: Constipation Diazepam (Valium) 5 mg IVPUSH Q6H PRN PRN Reason: Spasms Last Admin: 05/18/16 16:54 Dose: 5 mg Diphenhydramine HCl (Benadryl) 25 mg IVPUSH Q4H PRN PRN Reason: Itching Docusate Sodium (Colace) 100 mg PO BID PRN PRN Reason: Constipation Last Admin: 05/19/16 21:11 Dose: 100 mg Ketorolac Tromethamine (Toradol) 30 mg IVPUSH Q8H PRN PRN Reason: Pain Stop: 05/23/16 09:32 Last Admin: 05/19/16 22:57 Dose: 30 mg Losartan Potassium (Cozaar) 100 mg PO DAILY [facility] Last Admin: 05/19/16 10:50 Dose: Not Given Magnesium Hydroxide (Milk Of Magnesia) 30 ml PO BID PRN PRN Reason: Constipation Morphine Sulfate (Morphine) 2 mg IVPUSH Q2H PRN PRN Reason: Pain Last Admin: 05/18/16 14:56 Dose: 2 mg Scopolamine Patch (Check) 1 each TOP DAILY [facility] Ondansetron HCl (Zofran) 8 mg IVPUSH Q4H PRN PRN Reason: Nausea/Vomiting Last Admin: 05/19/16 19:38 Dose: 8 mg Oxycodone/Acetaminophen (Percocet 325-5 Mg) 2 tab PO Q4H PRN PRN Reason: Pain Last Admin: 05/20/16 03:43 Dose: 0.5 tab Pantoprazole Sodium (Protonix) 40 mg PO ACBREAKFAST [facility] Last Admin: 05/20/16 07:06 Dose: 40 mg Scopolamine (Transderm-Scop) 1.5 mg TRDERM Q72H [facility] Last Admin: 05/19/16 11:04 Dose: 1.5 mg Senna (Senna) 8.6 mg PO BID PRN PRN Reason: Constipation Sodium Chloride (Saline Flush) 10 ml FLUSH DAILY [facility] Last Admin: 05/19/16 08:13 Dose: 10 ml Tramadol HCl (Ultram) 100 mg PO Q6H PRN PRN Reason: Pain Last Admin: 05/19/16 14:56 Dose: 100 mg Zolpidem Tartrate (Ambien) 5 mg PO BEDTIME PRN PRN Reason: Sleep Discontinued Medications Aspirin (Ecotrin) 325 mg PO BID [facility] Bupivacaine HCl (Marcaine 0.5%) 3 ml INJECT ONETIME ONE Stop: 05/18/16 09:30 Last Admin: 05/18/16 18:32 Dose: Not Given Ropivacaine 49.25 ml/Ketorolac Tromethamine 30 mg/Epinephrine HCl 0.5 mg/ Clonidine HCl 80 mcg/ Sodium Chloride 48.45 ml 0 ml INJECT ASDIRECTED [facility] Stop: 05/18/16 09:30 Last Admin: 05/18/16 11:17 Dose: 100 syringe Fentanyl (Sublimaze) Confirm Administered Dose 100 mcg .ROUTE .STK-MED ONE Stop: 05/18/16 09:16 Gentamicin Sulfate (Gentamicin) Confirm Administered Dose 240 mg .ROUTE .[facility] ONE Stop: 05/18/16 08:45 Gentamicin Sulfate (Gentamicin) Confirm Administered Dose 240 mg .ROUTE .[facility] ONE Stop: 05/18/16 08:51 Last Admin: 05/18/16 10:14 Dose: 240 mg Lactated Ringer's (Ringers, Lactated) 1,000 mls @ 100 mls/hr IV ASDIRECTED [facility] Last Admin: 05/18/16 09:01 Dose: 100 mls/hr Cefazolin Sodium 2 gm/ Sodium (Chloride) 50 mls @ 100 mls/hr IV ONETIME ONE Stop: 05/18/16 07:59 Last Admin: 05/18/16 09:35 Dose: 100 mls/hr Tranexamic Acid 1,000 mg/ (Sodium Chloride) 60 mls @ 240 mls/hr IV Q3H [facility] Stop: 05/18/16 12:14 Last Admin: 05/18/16 11:56 Dose: 240 mls/hr Lactated Ringer's (Ringers, Lactated) 1,000 mls @ 100 mls/hr IV ASDIRECTED [facility] Last Admin: 05/19/16 17:01 Dose: 100 mls/hr Cefazolin Sodium/Dextrose 2 gm (/ Premix) 50 mls @ 100 mls/hr IV Q8H [facility] Stop: 05/19/16 04:29 Last Admin: 05/18/16 18:33 Dose: Not Given Cefazolin Sodium 2 gm/ Sodium (Chloride) 50 mls @ 100 mls/hr IV Q8H [facility] Stop: 05/19/16 09:29 Last Admin: 05/19/16 08:17 Dose: 100 mls/hr Ketorolac Tromethamine (Toradol) 30 mg IVPUSH Q8H PRN PRN Reason: Pain Stop: 05/23/16 09:32 Midazolam HCl (Versed 1 Mg/Ml) Confirm Administered Dose 2 mg .ROUTE .[facility] ONE Stop: 05/18/16 09:16 Naloxone HCl (Narcan) 0.1 mg IVPUSH ASDIRECTED PRN PRN Reason: Oversedation Stop: 05/18/16 09:30 Ondansetron HCl (Zofran) Confirm Administered Dose 4 mg .ROUTE .STK-MED ONE Stop: 05/18/16 09:17 Oxycodone/Acetaminophen (Percocet 325-5 Mg) 2 tab PO Q4H PRN PRN Reason: Pain Propofol (Diprivan 20 Ml) Confirm Administered Dose 200 mg .ROUTE .STK-MED ONE Stop: 05/18/16 09:16 Propofol (Diprivan 20 Ml) Confirm Administered Dose 200 mg .ROUTE .STK-MED ONE Stop: 05/18/16 09:59 Propofol (Diprivan 20 Ml) Confirm Administered Dose 200 mg .ROUTE .STK-MED ONE Stop: 05/18/16 10:28 Triamcinolone Acetonide (Kenalog-40) 80 mg IARTIC ONETIME ONE Stop: 05/18/16 09:30 Last Admin: 05/18/16 18:32 Dose: Not Given *Q Meaningful Use (DIS) - VTE *Q VTE Criteria *Q: - Stroke *Q Stroke Criteria *Q: - AMI *Q AMI Criteria *Q:
[2016-05-20] MEDS: Losartan 50 MG Tab PO SCH (08:24)
[2016-05-20] MEDS: amLODIPine 5 MG Tab PO SCH (08:24)
[2016-05-20] MEDS: Aspirin 325 MG Tab.EC PO SCH (08:24)
[2016-05-20 08:25] VITALS: BP 121/70
[2016-05-20] MEDS: Sodium Chloride 0.9% 10 ML Syringe FLUSH SCH (08:25)
[2016-05-20] MEDS ORDERED: SCOPOLAMINE PATCH CHECK TOP SCH (09:00)
[2016-05-20] MEDS: traMADol 50 MG Tab PO PRN (11:02)
== END 2016-05-20 11:42 | disposition home or self-care (01) | DRG 470 ==
LOC: EDSTATUS 07:30 → JP.MS 08:20 → JP.SDS 08:20 → JP.MS 13:02
PROVIDERS: ADMIT Orthopaedic Surgery; ATTEND Orthopaedic Surgery
PROC: 0SRD0J9 Replacement of Left Knee Joint with Synthetic Substitute, Cemented, Open Approach (ICD-10-PCS; principal; 2016-05-18)
DX: M17.12 Unilateral primary osteoarthritis, left knee (principal); I10 Essential (primary) hypertension; Z96.652 Presence of left artificial knee joint; R11.2 Nausea with vomiting, unspecified
CPT/HCPCS: 36415; 73560-26-LT; 73560-LT; 80053; 85025; 86850; 86900; 86901; 97110-GP; 97116-GP; 97161-GP; 97165-GO; 97530-GP; 97535-GP; A9270-GY; C1713; C1776; J0690; J1580; J1885; J2250; J2270; J2405; J2704; J2795; J3010; J3360; J7050; J7120

== ENCOUNTER 2017-09-28 06:01 | Day surgery (SDC) | payer MEDICARE, BC ==
[2017-09-28] MEDS ORDERED: ceFAZolin 2 GM in Premix Bag 1 BAG IV ONE (06:30)
[2017-09-28] MEDS ORDERED: Povidone-Iodine 10% Soln 118.25 ML Bottle ONE (06:47)
[2017-09-28] MEDS ORDERED: Gentamicin 40 MG/ML 2 ML Vial ONE ×2 (06:47→06:48)
[2017-09-28] MEDS: Lactated Ringers 1,000 ML IV SCH (06:58)
[2017-09-28] MEDS ORDERED: fentaNYL 100 MCG/2 ML SDV ONE (07:20)
[2017-09-28] MEDS ORDERED: Propofol 200 MG/20 ML SDV ONE ×2 (07:20→08:09)
[2017-09-28] MEDS ORDERED: Midazolam 1 MG/ML 2 ML SDV ONE (07:20)
[2017-09-28] MEDS: Tranexamic Acid 1,000 MG in Sodium Chloride 0.9% 50 ML IV SCH ×2 (07:55→11:17)
[2017-09-28] MEDS ORDERED: Ropivacaine 49.25 ML, Ketorolac 30 MG, EPINEPHrine 0.5 MG, cloNIDine 80 MCG, Sodium Chl... INJECT ONE ×5 (08:00)
[2017-09-28] MEDS ORDERED: Zolpidem 5 MG Tab PO PRN (08:34)
[2017-09-28] MEDS ORDERED: Bisacodyl 5 MG Tab PO PRN (08:34)
[2017-09-28] MEDS ORDERED: diphenhydrAMINE 50 MG/ML SDV IVPUSH PRN (08:34)
[2017-09-28] MEDS ORDERED: Sennosides 8.6 MG Tab PO PRN (08:34)
[2017-09-28] MEDS ORDERED: Magnesium Hydroxide 400 MG/5 ML Susp 30 ML Cup PO PRN (08:34)
[2017-09-28] MEDS ORDERED: Docusate Sodium 100 MG Cap PO PRN (08:34)
[2017-09-28] MEDS ORDERED: Naloxone 0.4 MG/ML SDV IVPUSH PRN (08:34)
[2017-09-28] MEDS ORDERED: Morphine 2 MG/ML Syringe IVPUSH PRN (08:34)
[2017-09-28] MEDS ORDERED: Acetaminophen/oxyCODONE 325-5 MG Tab PO PRN ×2 (08:34→14:44)
[2017-09-28] MEDS ORDERED: Ketorolac 30 MG/ML SDV IVPUSH PRN (08:34)
[2017-09-28] MEDS ORDERED: Aluminum Hydroxide/Magnesium Hydroxide/Simethicone Susp 30 ML Cup PO PRN (08:34)
[2017-09-28] MEDS ORDERED: Lactated Ringers 1,000 ML IV SCH (08:45)
[2017-09-28] MEDS ORDERED: MINOCYCLINE 50 MG PO SCH (08:45)
--- NOTE | 2017-09-28 09:23 | OR ---
DATE OF PROCEDURE: 09/28/2017 PREOPERATIVE DIAGNOSIS: Left knee pain. POSTOPERATIVE DIAGNOSIS: Left knee pain. PROCEDURES: 1. Left knee synovectomy. 2. Left knee polyethylene exchange. ANESTHESIA: Spinal plus conscious sedation. FLUIDS: Lactated Ringer solution. ESTIMATED BLOOD LOSS: 25 mL. COMPLICATIONS: None. SPECIMEN: None. DISCHARGE DISPOSITION: Stable to PACU. INDICATIONS FOR PROCEDURE: The patient was seen preoperatively in the clinic. We had performed a prior total knee arthroplasty. She was having pain on the lateral side of the proximal patella and distal patella, as well as on the lateral joint line, going from a sitting to a standing position. Nonoperative treatment had failed. Risks and benefits of the procedure were explained to the patient and informed consent was obtained. DESCRIPTION OF PROCEDURE: The patient was seen preoperatively by myself, and the Anesthesia staff in the preoperative holding area, where the operative site was marked. She was brought to the operative suite by the Anesthesia staff, where spinal anesthesia was administered plus conscious sedation. All extremities were found to be well padded. A sterile Bo catheter was placed. A well-padded tourniquet was placed on the left thigh. The left lower extremity was then prepped and draped in a sterile manner. A time-out was called identifying the correct patient, the correct procedure, the correct site, and that antibiotics had been begun within the appropriate period of time. An incision was made through the previous incision approximately four fingerbreadths proximal to the patella and down to the level of the tibial tubercle. Then, a medial parapatellar arthrotomy was performed. A full synovectomy was performed removing abundant soft tissue throughout the joint and circumferentially around the patella. After this had been performed, I removed a small amount of bone from the notch and then cleaning the soft tissue out of the notch. I then trialed with a 10-mm polyethylene CPS trial. This appeared to have good stability throughout range of motion. We then irrigated with saline and then placed our final implant. We then closed with two #5 Ethibonds, #1 STRATAFIX, #2 STRATAFIX, skin paradise and sterile dressing. The tourniquet was let down at 32 minutes. The patient was then allowed to awaken from conscious sedation and taken to the PACU in a stable condition. Topher Mcdaniel DO /[id number]
[2017-09-28] MEDS: Ondansetron 4 MG/2 ML SDV IVPUSH PRN ×2 (09:45→14:39)
--- NOTE | 2017-09-28 10:30 | CR ---
Knee 1V or 2V Lt CLINICAL HISTORY: Postop FINDINGS: Patient has had a 3 component total knee arthroplasty. This appears to be a revision. [place] nents appear well seated There is some intrasynovial and subcutaneous air. Impression: Status post revision of a total knee arthroplasty
[2017-09-28] MEDS: Sodium Chloride 0.9% 10 ML Syringe FLUSH SCH (11:20)
[2017-09-28] MEDS: traMADol 50 MG Tab PO PRN ×2 (12:42→13:23)
[2017-09-28] MEDS: Loratadine 10 MG Tab PO SCH (12:43)
[2017-09-28] MEDS ORDERED: ceFAZolin 2 GM in Premix Bag 1 BAG IV SCH (16:00)
[2017-09-28] MEDS ORDERED: Scopolamine 1.5 MG Transdermal Patch TRDERM PRN (17:02)
[2017-09-28] MEDS: ceFAZolin 2 GM in Sodium Chloride 0.9% 50 ML IV SCH (17:05)
[2017-09-28] MEDS ORDERED: LORazepam 2 MG/ML SDV IVPUSH PRN (17:17)
--- NOTE | 2017-09-28 17:33 | PCM.CONS ---
H&P History of Present Illness - General Date of Service: 09/28/17 Admit Problem/Dx: Admission Diagnosis/Problem Admission Diagnosis/Problem Knee pain Source of Information: Patient, Family, Provider, RN Notes Reviewed History Limitations: Reports: No Limitations - History of Present Illness Initial Comments - Free Text/Narative: This patient is a 66-year-old woman who I been asked to see by Dr. Benoit Mcdaniel for assistance in postoperative medical management. She underwent a resurfacing procedure of her right total knee arthroplasty earlier today by Dr. Mcdaniel. During the initial postoperative period she has had some ongoing difficulty with nausea vomiting, otherwise reports pain control is been good and denies any symptoms of chest pain or shortness of breath. She is otherwise relatively healthy but does have a known history of hypertension and has been restarted on her antihypertensive medications. Left Knee Pain Score (Numeric/FACES): 5 - Related Data Allergies/Adverse Reactions: Allergies Allergy/AdvReac Type Severity Reaction Status Date / Time acetaminophen [From [facility]] AdvReac Nausea and Verified 05/18/16 09:53 Vomiting codeine AdvReac Nausea and Verified 05/18/16 09:53 Vomiting hydrocodone [From [facility]] AdvReac Nausea and Verified 05/18/16 09:53 Vomiting Home Medications: Home Meds [place]-3/DHA/Epa/Fish Oil [Fish Oil Dr 500 mg Softgel] 1 each PO DAILY 01/28/14 [ History] Multivitamin [Gummi Bear Multivitamin] 2 each PO DAILY 01/31/16 [History] amLODIPine Besylate [Amlodipine Besylate] 5 mg PO ASDIRECTED 01/31/16 [History] Losartan [Cozaar] 100 mg PO DAILY 02/04/16 [History] Ibuprofen 200 mg PO ASDIRECTED PRN 05/03/16 [History] Minocycline [Minocin] 50 mg PO ASDIRECTED 09/01/17 [History] Furosemide 20 mg PO ASDIRECTED 09/28/17 [History] Loratadine [Claritin] 10 mg PO DAILY 09/28/17 [History] Past Medical History HEENT History: Reports: Impaired Vision Cardiovascular History: Reports: Heart Murmur, Hypertension Gastrointestinal History: Reports: None Genitourinary History: Reports: Renal Calculus, UTI, Recurrent SITE MEDICAL DIRECTOR History: Reports: , Spontaneous Musculoskeletal History: Reports: Other (See Below) Other Musculoskeletal History: s/p LTKA. L knee pain Neurological History: Reports: Migraines Hematologic History: Reports: Blood Transfusion(s) Dermatologic History: Reports: Eczema - Infectious Disease History Infectious Disease History: Reports: Chicken Pox, Measles, Mumps - Past Surgical History HEENT Surgical History: Reports: Tonsillectomy GI Surgical History: Reports: Colonoscopy Female Surgical History: Reports: D&C, Hysterectomy Neurological Surgical History: Reports: Laminectomy Musculoskeletal Surgical History: Reports: Carpal Tunnel, Other (See Below) Other Musculoskeletal Surgeries/Procedures:: Lamenectomy of back meniscus tear; Right leg vein surgery Dermatological Surgical History: Reports: None Social & Family History - Family History Family Medical History: Noncontributory - Tobacco Use Smoking Status *Q: Never Smoker Second Hand Smoke Exposure: No - Caffeine Use Caffeine Use: Reports: Coffee, Tea - Alcohol Use Days Per Week of Alcohol Use: 1 Number of Drinks Per Day: 1 Total Drinks Per Week: 1 - Recreational Drug Use Recreational Drug Use: No - Living Situation & Occupation Living situation: Reports: , with Family H&P Review of Systems - Review of Systems: Review Of Systems: See Below Pulmonary: Reports: No Symptoms Cardiovascular: Reports: No Symptoms Gastrointestinal: Reports: No Symptoms Genitourinary: Reports: No Symptoms Exam - Exam Exam: See Below - Vital Signs Vital Signs: Last Vital Signs Temp 97.8 F 09/28/17 15:31 Pulse 71 09/28/17 15:31 Resp 16 09/28/17 15:31 BP 131/60 09/28/17 15:31 Pulse Ox 93 L 09/28/17 15:31 Weight: 222 lb 8 oz - Exam General: Alert, Oriented, Cooperative, Moderate Distress Neck: Supple, Trachea Midline, +2 Carotid Pulse wo Bruit Lungs: Clear to Auscultation, Normal Respiratory Effort Cardiovascular: Regular Rate, Regular Rhythm, Normal S1, Normal S2. No: Systolic Murmur, Diastolic Murmur GI/Abdominal Exam: Soft, Non-Tender, No Organomegaly, No Distention - Patient Data Lab Results Last 24 hrs: Laboratory Results - last 24 hr 09/28/17 Range/Units 06:00 Blood Type O POSITIVE Gel Antibody Screen Negative Consult PN Assessment/Plan Procedures: Procedures ASSAY OF CK (CPK) (01/28/14) ASSAY OF CREATININE (01/28/16) ASSAY OF TROPONIN QUANT (01/28/14) BLOOD TYPING SEROLOGIC ABO (09/01/17) BLOOD TYPING SEROLOGIC RH(D) (09/01/17) COMP SCREEN MAMMOGRAM ADD-ON (06/13/14) COMPLETE CBC AUTOMATED (09/01/17) COMPLETE CBC W/AUTO DIFF WBC (05/18/16) COMPREHEN METABOLIC PANEL (09/01/17) CT HEAD/BRAIN W/O DYE (01/28/14) CULTR BACTERIA EXCEPT BLOOD (03/24/17) CULTURE OTHR SPECIMN AEROBIC (09/01/17) DRAIN/INJ JOINT/BURSA W/O US (03/31/17) ELECTROCARDIOGRAM TRACING (09/01/17) EMERGENCY DEPT VISIT (01/31/16) GAIT TRAINING THERAPY (06/16/16) HOT OR COLD PACKS THERAPY (01/17/17) MANUAL THERAPY 1/> REGIONS (01/17/17) MRI JNT OF LWR EXTRE W/O DYE (04/26/16) MRI LUMBAR SPINE W/O & W/DYE (01/28/16) MRI LUMBAR SPINE W/O DYE (06/30/15) OFFICE/OUTPATIENT VISIT EST (06/22/17) OFFICE/OUTPATIENT VISIT EST (03/01/16) OFFICE/OUTPATIENT VISIT NEW (02/05/16) OT EVAL LOW COMPLEX 30 MIN (05/18/16) POSTOP FOLLOW-UP VISIT (06/03/16) PT EVAL LOW COMPLEX 20 MIN (01/17/17) RBC ANTIBODY SCREEN (09/01/17) ROUTINE VENIPUNCTURE (09/01/17) SELF CARE MNGMENT TRAINING (05/18/16) SMEAR GRAM STAIN (03/24/17) THER/PROPH/DIAG INJ IV PUSH (01/28/14) THERAPEUTIC ACTIVITIES (07/26/16) THERAPEUTIC EXERCISES (01/17/17) TX/PRO/DX INJ SAME DRUG STRUCTURAL STEEL ENGINEER (01/28/14) ULTRASOUND THERAPY (01/17/17) URINALYSIS AUTO W/O SCOPE (05/03/16) URINALYSIS AUTO W/SCOPE (01/28/14) X-RAY EXAM L-2 SPINE 4/>VWS (12/16/16) X-RAY EXAM OF KNEE 1 OR 2 (03/24/17) X-RAY EXAM OF KNEE 3 (01/31/16) Problem List Initiated/Reviewed/Updated: Yes My Orders Last 24 Hours: My Active Orders 09/28/17 17:17 LORazepam [Ativan] 0.5 mg IVPUSH Q2H PRN Plan: ASSESSMENT AND RECOMMENDATIONS STATUS POST RESURFACING OF PROSTHETIC JOINT-postoperative course complicated by nausea and vomiting -Postoperative care per Dr. Mcdaniel HYPERTENSION -Monitor blood pressure regularly during hospital stay -Continue outpatient medications Requesting Provider: EDUARDO Date Consult Requested: 09/28/17 Reason for Consult: Postoperative medical management Patient History Reviewed: Yes
[2017-09-28] MEDS: Ibuprofen 400 MG Tab PO PRN (20:33)
[2017-09-29] MEDS: ceFAZolin 2 GM in Sodium Chloride 0.9% 50 ML IV SCH ×2 (00:23→11:04)
[2017-09-29] MEDS: Ibuprofen 400 MG Tab PO PRN ×2 (02:36→08:24)
[2017-09-29] MEDS: Lactated Ringers 1,000 ML IV SCH (04:12)
[2017-09-29] MEDS: Loratadine 10 MG Tab PO SCH (08:19)
[2017-09-29 08:27] VITALS: BP 140/73
[2017-09-29] MEDS: Sodium Chloride 0.9% 10 ML Syringe FLUSH SCH (08:29)
--- NOTE | 2017-09-29 08:56 | PCM.DCSUM1 ---
Discharge Summary - Hospital Course Diagnosis: Stroke: No - Discharge Data Discharge Date: 09/29/17 Discharge Disposition: Home, Self-Care 01 Condition: Good - Patient Summary/Data Operative Procedure(s) Performed: revision l tka Complications: none Consults: Consultations 09/28/17 08:34 OT Evaluation and Treatment [CONS] Routine Please Evaluate and Treat. OT Reason for Consult: Strengthening This query below is only for informational purposes and is not editable. PT Evaluation and Treatment [CONS] Routine Please Evaluate and Treat. PT Reason for Consult: Strengthening This query below is only for informational purposes and is not editable. Respiratory Care Assess and Treatment [CONS] Routine Comment: Physician Instructions: Post-op Pneumonia Prevention - Patient Instructions Diet: Usual Diet as Tolerated Activity: Apply Ice, As Tolerated, Full Weight Bearing, No Strenuous Activities Driving: Do Not Drive Showering/Bathing: May Shower Wound/Incision Care: Keep Operative Site/Wound Site Clean and Dry Wound/Incision, Other: change aquacell tuesday, then daily dressing changes Notify Provider of: Fever, Increased Pain, Swelling and Redness, Drainage, Nausea and/or Vomiting (the) - Discharge Plan *PRESCRIPTION DRUG MONITORING PROGRAM REVIEWED*: No *COPY OF PRESCRIPTION DRUG MONITORING REPORT IN PATIENT GUERO: No Prescriptions/Med Rec: Aspirin [Ecotrin] 325 mg PO DAILY #30 tab.ec Home Medications: Home Meds [place]-3/DHA/Epa/Fish Oil [Fish Oil Dr 500 mg Softgel] 1 each PO DAILY 01/28/14 [ History] Multivitamin [Gummi Bear Multivitamin] 2 each PO DAILY 01/31/16 [History] amLODIPine Besylate [Amlodipine Besylate] 5 mg PO ASDIRECTED 01/31/16 [History] Losartan [Cozaar] 100 mg PO DAILY 02/04/16 [History] Ibuprofen 200 mg PO ASDIRECTED PRN 05/03/16 [History] Minocycline [Minocin] 50 mg PO ASDIRECTED 09/01/17 [History] Furosemide 20 mg PO ASDIRECTED 09/28/17 [History] Loratadine [Claritin] 10 mg PO DAILY 09/28/17 [History] Aspirin [Ecotrin] 325 mg PO DAILY #30 tab.ec 09/29/17 [Rx] Referrals: Topher Mcdaniel DO [Physician] - - General Info Date of Service: 09/29/17 Functional Status: Reports: Pain Controlled, Tolerating Diet, Ambulating, Urinating - Review of Systems General: Reports: No Symptoms HEENT: Reports: No Symptoms Pulmonary: Reports: No Symptoms Cardiovascular: Reports: No Symptoms Gastrointestinal: Reports: No Symptoms Genitourinary: Reports: No Symptoms Musculoskeletal: Reports: Leg Pain, Joint Pain Skin: Reports: No Symptoms Neurological: Reports: No Symptoms Psychiatric: Reports: No Symptoms - Patient Data Vitals - Most Recent: Last Vital Signs Temp 96.9 F 09/29/17 08:31 Pulse 68 09/29/17 08:30 Resp 16 09/29/17 08:30 BP 140/73 09/29/17 08:30 Pulse Ox 96 09/29/17 08:30 Weight - Most Recent: 222 lb 8 oz I&O - Last 24 hours: Intake & Output 09/28/17 09/29/17 09/29/17 22:59 06:59 14:59 Intake Total 1030 1423 Output Total 750 450 400 Balance 280 973 -400 Med Orders - Current: Current Medications Al Hydroxide/Mg Hydroxide (Mag-Al Plus) 30 ml PO Q4H PRN PRN Reason: Constipation Amlodipine Besylate (Norvasc) 5 mg PO DAILY [facility] Last Admin: 09/29/17 08:28 Dose: Not Given Aspirin (Ecotrin) 325 mg PO DAILY [facility] Last Admin: 09/29/17 08:23 Dose: 325 mg Bisacodyl (Dulcolax) 10 mg PO DAILY PRN PRN Reason: Constipation Diphenhydramine HCl (Benadryl) 25 mg IVPUSH Q4H PRN PRN Reason: Itching Docusate Sodium (Colace) 100 mg PO BID PRN PRN Reason: Constipation Furosemide (Lasix) 20 mg PO DAILY PRN PRN Reason: * Lactated Ringer's (Ringers, Lactated) 1,000 mls @ 100 mls/hr IV ASDIRECTED [facility] Last Admin: 09/29/17 04:12 Dose: 100 mls/hr Lactated Ringer's (Ringers, Lactated) 1,000 mls @ 100 mls/hr IV ASDIRECTED [facility] Last Admin: 09/28/17 17:04 Dose: 100 mls/hr Ibuprofen (Motrin) 400 mg PO Q6H PRN PRN Reason: Pain Last Admin: 09/29/17 08:24 Dose: 400 mg Loratadine (Claritin) 10 mg PO DAILY [facility] Last Admin: 09/29/17 08:19 Dose: Not Given Lorazepam (Ativan) 0.5 mg IVPUSH Q2H PRN PRN Reason: Nausea/Vomiting Losartan Potassium (Cozaar) 100 mg PO DAILY [facility] Last Admin: 09/29/17 08:20 Dose: 100 mg Magnesium Hydroxide (Milk Of Magnesia) 30 ml PO BID PRN PRN Reason: Constipation Morphine Sulfate (Morphine) 2 mg IVPUSH Q2H PRN PRN Reason: Pain Naloxone HCl (Narcan) 0.1 mg IVPUSH ONETIME PRN PRN Reason: Oversedation Minocycline (Minocin () 50 MgPom) 50 mg PO ASDIRECTED [facility] Ondansetron HCl (Zofran) 8 mg IVPUSH Q4H PRN PRN Reason: Nausea/Vomiting Last Admin: 09/28/17 14:39 Dose: 8 mg Oxycodone/Acetaminophen (Percocet 325-5 Mg) 0.5 - 2 tab PO Q4H PRN PRN Reason: Pain Scopolamine (Transderm-Scop) 1.5 mg TRDERM Q72H PRN PRN Reason: Nausea/Vomiting Last Admin: 09/28/17 17:42 Dose: 1.5 mg Senna (Senna) 8.6 mg PO BID PRN PRN Reason: Constipation Sodium Chloride (Saline Flush) 10 ml FLUSH DAILY [facility] Last Admin: 09/29/17 08:29 Dose: Not Given Zolpidem Tartrate (Ambien) 5 mg PO BEDTIME PRN PRN Reason: Sleep Discontinued Medications Ropivacaine 49.25 ml/Ketorolac Tromethamine 30 mg/Epinephrine HCl 0.5 mg/ Clonidine HCl 80 mcg/ Sodium Chloride 48.45 ml 0 ml INJECT ONETIME ONE Stop: 09/28/17 08:01 Last Admin: 09/28/17 08:12 Dose: 100 ml Fentanyl (Sublimaze) Confirm Administered Dose 100 mcg .ROUTE .STK-MED ONE Stop: 09/28/17 07:21 Gentamicin Sulfate (Gentamicin) Confirm Administered Dose 80 mg .ROUTE .STK-MED ONE Stop: 09/28/17 06:48 Last Admin: 07/11/18 08:26 Dose: 80 mg Gentamicin Sulfate (Gentamicin) Confirm Administered Dose 160 mg .ROUTE .STK- MED ONE Stop: 09/28/17 06:49 Last Admin: 09/28/17 08:26 Dose: 160 mg Cefazolin Sodium/Dextrose 2 gm (/ Premix) 50 mls @ 100 mls/hr IV ONETIME ONE Stop: 09/28/17 06:59 Last Admin: 09/28/17 07:40 Dose: 100 mls/hr Tranexamic Acid 1,000 mg/ (Sodium Chloride) 60 mls @ 240 mls/hr IV Q3H [facility] Stop: 09/28/17 10:59 Last Admin: 09/28/17 11:17 Dose: 240 mls/hr Acetaminophen (Ofirmev) Confirm Administered Dose 100 mls @ as directed IV .STK- MED ONE Stop: 09/28/17 07:23 Cefazolin Sodium/Dextrose 2 gm (/ Premix) 50 mls @ 100 mls/hr IV Q8H [facility] Stop: 09/29/17 08:29 Cefazolin Sodium 2 gm/ Sodium (Chloride) 50 mls @ 100 mls/hr IV Q8H [facility] Stop: 09/29/17 08:29 Last Admin: 09/29/17 00:23 Dose: 100 mls/hr Ketorolac Tromethamine (Toradol) 30 mg IVPUSH Q8H PRN PRN Reason: Pain Midazolam HCl (Versed 1 Mg/Ml) Confirm Administered Dose 2 mg .ROUTE .STK-MED ONE Stop: 09/28/17 07:21 Oxycodone/Acetaminophen (Percocet 325-5 Mg) 2 tab PO Q4H PRN PRN Reason: Pain Povidone Iodine (Betadine 10% Soln) Confirm Administered Dose 1 ml .ROUTE .STK- MED ONE Stop: 09/28/17 06:48 Last Admin: 09/28/17 08:29 Dose: 1 ml Propofol (Diprivan 20 Ml) Confirm Administered Dose 200 mg .ROUTE .STK-MED ONE Stop: 09/28/17 07:21 Propofol (Diprivan 20 Ml) Confirm Administered Dose 200 mg .ROUTE .STK-MED ONE Stop: 09/28/17 08:10 Tramadol HCl (Ultram) 100 mg PO Q6H PRN PRN Reason: Pain Last Admin: 09/28/17 13:23 Dose: 50 mg - Exam General: Reports: Alert, Oriented HEENT: Reports: Pupils Equal, Pupils Reactive, Mucous Membr. Moist/[place] Neck: Reports: Supple, Trachea Midline Lungs: Reports: Normal Respiratory Effort Extremities: Joint Swelling, Limited Range of Motion Skin: Reports: Warm, Dry, Intact Wound/Incisions: Reports: Healing Well, Drainage Neurological: Reports: No New Focal Deficit Psy/Mental Status: Reports: Alert, Normal Affect, Normal Mood (acceptable post op drainage, dried blood) Discharge Operative/Procedures - Procedures Performed Operations: revision l tka
[2017-09-29] MEDS ORDERED: Losartan 50 MG Tab PO SCH (09:00)
[2017-09-29] MEDS ORDERED: Furosemide 20 MG Tab PO PRN (09:00)
[2017-09-29] MEDS ORDERED: amLODIPine 5 MG Tab PO SCH (09:00)
[2017-09-29] MEDS ORDERED: Aspirin 325 MG Tab.EC PO SCH (09:00)
== END 2017-09-29 13:54 | disposition home or self-care (01) ==
LOC: JP.SDS 06:01 → JP.MS 08:34 → JP.SDS 09-29 13:54
PROVIDERS: ATTEND Orthopaedic Surgery
DX: M25.562 Pain in left knee (principal); Z79.82 Long term (current) use of aspirin; Z79.899 Other long term (current) drug therapy; Z88.5 Allergy status to narcotic agent
CPT/HCPCS: 27335; 36415; 73560; 86850; 86900; 86901; 94762; 97110; 97162; 97165; 97530; 97535; A9270; J0131; J0171; J0690; J0735; J1580; J1885; J2250; J2405; J2704; J2795; J3010; J7050; J7120

== ENCOUNTER 2020-12-29 06:37 | Emergency (ER) | payer MEDICARE ==
[2020-12-29] MEDS ORDERED: Meclizine 25 MG Tab PO ONE (06:40)
[2020-12-29] MEDS ORDERED: Prochlorperazine 10 MG/2 ML SDV IVPUSH ONE (06:50)
[2020-12-29] MEDS ORDERED: Sodium Chloride 0.9% 10 ML Syringe FLUSH PRN (06:50)
--- NOTE | 2020-12-29 06:50 | EDM.PDOC ---
<Charles Renae - Last Filed: 12/29/20 06:41> ED HPI GENERAL MEDICAL PROBLEM - General Chief Complaint: Neurological Problem Stated Complaint: MEDICAL VIA [facility] Time Seen by Provider: 12/29/20 06:39 Source of Information: Reports: Patient, EMS History Limitations: Reports: No Limitations - History of Present Illness INITIAL COMMENTS - FREE TEXT/NARRATIVE: Destiny a 70-year-old female brought in by [facility] for evaluation of acute onset of dizziness. Patient awoke this morning at 5 AM having to use the bathroom and when she opened her eyes and sat up to get out of bed she became acutely dizzy with room spinning. Her symptoms improved slightly with her eyes closed but every time she opens her eyes the room starts to spin again. She even had difficulty with laying in bed because the bed was spinning. She denies any head injury or previous symptoms like this. She does have a remote history for migraine headaches but has not had one in 2 years. She denies a headache now. She has had significant nausea with vomiting. She asked her to assist her to the bathroom as she was having difficulty walking due to the nikki tigo. She denies any new numbness, tingling, or weakness in the arms or legs. She has no vision changes other than it makes her very very dizzy with her eyes open. EMS also notes that the patient is quite hypertensive in route. They did give her Zofran 4 mg IV without much improvement in her symptoms. - Related Data Allergies Allergy/AdvReac Type Severity Reaction Status Date / Time cat dander Allergy Other Verified 12/29/20 06:52 acetaminophen [From [place]] AdvReac Nausea and Verified 12/29/20 06:52 Vomiting codeine AdvReac Nausea and Verified 12/29/20 06:52 Vomiting hydrocodone [From [place]] AdvReac Nausea and Verified 12/29/20 06:52 Vomiting Home Meds: Home Meds [place]-3/DHA/Epa/Fish Oil [Fish Oil Dr 500 mg Softgel] 1 each PO DAILY 01/28/14 [History] amLODIPine Besylate [Amlodipine Besylate] 5 mg PO DAILY 01/31/16 [History] Losartan [Cozaar] 100 mg PO DAILY 02/04/16 [History] Ibuprofen 200 mg PO ASDIRECTED PRN 05/03/16 [History] Acetylcysteine [Nac] 600 mg PO DAILY 03/27/20 [History] Albuterol [Ventolin HFA] 2 inhalation IH Q6HR PRN 03/27/20 [History] Cholecalciferol (Vitamin D3) [Vitamin D3] 1,000 unit PO BID 03/27/20 [History] Montelukast Sodium [Singulair] 10 mg PO DAILY 03/27/20 [History] Multivitamin 1 each PO DAILY 03/27/20 [History] Omeprazole 40 mg PO DAILY 03/27/20 [History] Quercetin Dihydrate 500 mg MC DAILY 03/27/20 [History] Albuterol/Ipratropium [DuoNeb 3.0-0.5 MG/3 ML] 3 ml INH Q4H PRN 09/04/20 [History] Diclofenac Sodium [Voltaren] 100 gm TP QID PRN #1 gel..gram. 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 R knee pain Neurological History: Reports: Migraines Psychiatric History: Reports: None Endocrine/Metabolic History: Reports: None Hematologic History: Reports: Blood Transfusion(s) Immunologic History: Reports: None Oncologic (Cancer) History: Reports: None Dermatologic History: Reports: Eczema - Infectious Disease History Infectious Disease History: Reports: Chicken Pox, Measles, Mumps - Past Surgical History Head Surgeries/Procedures: Reports: None HEENT Surgical History: Reports: Tonsillectomy Cardiovascular Surgical History: Reports: Vascular Surgery, Other (See Below) Other Cardiovascular Surgeries/Procedures: R LE vein surgery GI Surgical History: Reports: Colonoscopy Female Surgical History: Reports: D&C, Hysterectomy Neurological Surgical History: Reports: Laminectomy Other Neurological Surgeries/Procedures: Lami: 08/2015 [facility] Musculoskeletal Surgical History: Reports: Knee Replacement Other Musculoskeletal Surgeries/Procedures:: Lamenectomy of back meniscus tear; Right leg vein surgery Dermatological Surgical History: Reports: None Social & Family History - Family History Family Medical History: No Pertinent Family History - Caffeine Use Caffeine Use: Reports: Coffee - Living Situation & Occupation Living situation: Reports: , with Family ED ROS GENERAL - Review of Systems Review Of Systems: See Below Constitutional: Reports: No Symptoms HEENT: Reports: No Symptoms Respiratory: Reports: No Symptoms Cardiovascular: Reports: No Symptoms Endocrine: Reports: No Symptoms GI/Abdominal: Reports: Nausea, Vomiting : Reports: No Symptoms Musculoskeletal: Reports: No Symptoms Skin: Reports: No Symptoms Neurological: Reports: Dizziness (Vertigo type symptoms.) Psychiatric: Reports: No Symptoms Hematologic/Lymphatic: Reports: No Symptoms Immunologic: Reports: No Symptoms ED EXAM, DIZZINESS - Physical Exam Exam: See Below General Appearance: Alert, Anxious, Moderate Distress Eye Exam: Bilateral Eye: EOMI (Significant horizontal nystagmus when she does open her eyes), Nystagmus, PERRL (Pupils are pinpoint but reactive) Ears: Normal External Exam, Normal Canal, Normal TMs Nose: Normal Inspection, Normal Mucosa Throat/Mouth: Normal Inspection, Normal Oropharynx, Normal Voice, No Airway Compromise Head Exam: Atraumatic, Normocephalic Vertigo: constant Neck: Normal Inspection, Supple. No: Lymphadenopathy (R), Lymphadenopathy (L) Respiratory/Chest: No Respiratory Distress, Lungs Clear, Normal Breath Sounds Cardiovascular: Normal Peripheral Pulses, Regular Rate, Rhythm, No Murmur Neurological: Alert, CN II-XII Intact, No Motor/Sensory Deficits, Oriented x 3 Psychiatric: Anxious Skin Exam: Warm, Dry, Intact, Normal Color. No: Diaphoretic Course - Re-Assessments/Exams Free Text/Narrative Re-Assessment/Exam: 12/29/20 06:53 care was initiated by Dr. Renae and transferred to Dr. Lopes at 0700 hrs. Labs were drawn including a CBC, comprehensive metabolic panel, and C-reactive protein. 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 Departure - Departure Disposition: Home, Self-Care 01 Clinical Impression: Vertigo - Discharge Information Prescriptions: Meclizine [Antivert] 25 mg PO Q6H PRN #30 tab.chew PRN Reason: Dizziness Referrals: PCP,None [Primary Care Provider] - Forms: ED Department Discharge Additional Instructions: Use meclizine as directed for ongoing or recurrent vertigo symptoms. No driving today. Recheck here or with your provider as needed. Your head CT scan and lab work was all unremarkable today. <Lexx Lopes G - Last Filed: 12/29/20 08:53> Course - Vital Signs Last Recorded V/S: Last Vital Signs Temp 35.8 C L 12/29/20 06:46 Pulse 61 12/29/20 08:20 Resp 16 12/29/20 08:20 BP 158/74 H 12/29/20 08:20 Pulse Ox 96 12/29/20 08:20 - Orders/Labs/Meds Orders: Active Orders 24 hr Category Date Time Status UA W/MICROSCOPIC [URIN] Stat Lab 12/29/20 06:40 Ordered Lactated Ringers [Ringers, Lactated] 1,000 ml Med 12/29/20 08:34 Active IV BOLUS Sodium Chloride 0.9% [Saline Flush] Med 12/29/20 06:50 Active 10 ml FLUSH ASDIRECTED PRN Saline Lock Insert [OM.PC] Routine Oth 12/29/20 06:50 Ordered Medication Orders Lactated Ringer's (Ringers, Lactated) 1,000 mls @ 1,000 mls/hr IV BOLUS ONE Stop: 12/29/20 09:33 Last Admin: 12/29/20 08:40 Dose: 1,000 mls/hr Documented by: OMYARA Sodium Chloride (Sodium Chloride 0.9% 10 Ml Syringe) 10 ml FLUSH ASDIRECTED PRN PRN Reason: Keep Vein Open Last Admin: 12/29/20 07:04 Dose: 10 ml Documented by: OLAYINKA Labs: Laboratory Tests 12/29/20 12/29/20 Range/Units 06:52 06:52 WBC 7.6 (4.5-11.0) K/uL RBC 5.05 (3.30-5.50) M/uL Hgb 15.0 (12.0-15.0) g/dL Hct 45.0 (36.0-48.0) % MCV 89 (80-98) fL MCH 30 (27-31) pg MCHC 33 (32-36) % Plt Count 239 (150-400) K/uL Neut % (Auto) 69.1 H (36-66) % Lymph % (Auto) 21.3 L (24-44) % [place] % (Auto) 7.0 H (2-6) % Eos % (Auto) 2.2 (2-4) % Baso % (Auto) 0.4 (0-1) % Sodium 140 (140-148) mmol/L Potassium 3.7 (3.6-5.2) mmol/L Chloride 103 (100-108) mmol/L Carbon Dioxide 26 (21-32) mmol/L Anion Gap 11.1 (5.0-14.0) mmol/L BUN 14 (7-18) mg/dL Creatinine 0.7 (0.6-1.0) mg/dL Est Cr Clr Drug Dosing 78.15 mL/min Estimated GFR (MDRD) > 60 (>60) Glucose 160 H (74-106) mg/dL Calcium 8.7 (8.5-10.1) mg/dL Total Bilirubin 0.7 (0.2-1.0) mg/dL AST 23 (15-37) U/L ALT 29 (12-78) U/L Alkaline Phosphatase 134 H (46-116) U/L C-Reactive Protein 0.35 H (0.0-0.3) mg/dL Total Protein 6.3 L (6.4-8.2) g/dL Albumin 3.5 (3.4-5.0) g/dL Globulin 2.8 (2.3-3.5) g/dL Albumin/Globulin Ratio 1.2 (1.2-2.2) Meds: Medications Generic Name Dose Route Start Last Admin Trade Name Freq PRN Reason Stop Dose Admin Lactated Ringer's 1,000 mls @ 1,000 mls/hr 12/29/20 08:34 12/29/20 08:40 Ringers, Lactated IV 12/29/20 09:33 1,000 mls/hr BOLUS ONE Administration Sodium Chloride 10 ml 12/29/20 06:50 12/29/20 07:04 Sodium Chloride 0.9% 10 Ml Syringe FLUSH 10 ml ASDIRECTED PRN Administration Keep Vein Open Discontinued Medications Generic Name Dose Route Start Last Admin Trade Name Freq PRN Reason Stop Dose Admin Diphenhydramine HCl 25 mg 12/29/20 07:42 12/29/20 07:51 Diphenhydramine 50 Mg/Ml Sdv IVPUSH 12/29/20 07:43 25 mg ONETIME ONE Administration Meclizine HCl 25 mg 12/29/20 06:40 12/29/20 08:18 Meclizine 25 Mg Tab PO 12/29/20 06:41 25 mg ONETIME ONE Administration Prochlorperazine Edisylate 10 mg 12/29/20 06:50 12/29/20 07:04 Prochlorperazine 10 Mg/2 Ml Sdv IVPUSH 12/29/20 06:51 10 mg ONETIME ONE Administration - Radiology Interpretation Free Text/Narrative:: head CT- IMPRESSION: Unremarkable noncontrast head CT. Please note that all CT scans at this facility use dose modulation, iterative reconstruction, and/or weight-based dosing when appropriate to reduce radiation dose to as low as reasonably achievable. Dictated by Patrick Yoon MD @ 12/29/2020 7:38:09 AM - Re-Assessments/Exams Free Text/Narrative Re-Assessment/Exam: 12/29/20 08:41 Refused her meclizine, accepted IV Benedryl and is now feeling better. Departure - Departure Time of Disposition: 09:50 Condition: Fair - Discharge Information *PRESCRIPTION DRUG MONITORING PROGRAM REVIEWED*: Not Applicable *COPY OF PRESCRIPTION DRUG MONITORING REPORT IN PATIENT GUERO: Not Applicable Sepsis Event Note (ED) - Focused Exam Vital Signs: Vital Signs Temp Pulse Resp BP Pulse Ox 12/29/20 08:20 61 16 158/74 H 96 12/29/20 06:46 35.8 C L 58 L 16 176/84 H 98 - My Orders Last 24 Hours: My Active Orders 12/29/20 08:34 Lactated Ringers [Ringers, Lactated] 1,000 ml IV BOLUS - Assessment/Plan Last 24 Hours: My Active Orders 12/29/20 08:34 Lactated Ringers [Ringers, Lactated] 1,000 ml IV BOLUS
--- NOTE | 2020-12-29 07:39 | CRLCT ---
For Patients: As a result of the Century Cures Act, medical imaging exams and procedure reports are released immediately into your electronic medical record. You may view this report before your referring provider. If you have questions, please contact your health care provider. INDICATION: Acute vertigo. TECHNIQUE: CT head without contrast. COMPARISON: January 28, 2014. FINDINGS: CSF spaces: Within normal limits for age. Brain parenchyma and extra-axial spaces: The nguyen-white differentiation is normal. No sign of mass, hemorrhage, or midline shift. No extra-axial fluid collection. Skull base and calvarium: The visualized paranasal sinuses and mastoid air cells demonstrate no acute or significant findings. The visualized orbits are grossly unremarkable. No skull fractures. IMPRESSION: Unremarkable noncontrast head CT. Please note that all CT scans at this facility use dose modulation, iterative reconstruction, and/or weight-based dosing when appropriate to reduce radiation dose to as low as reasonably achievable. Dictated by Patrick Yoon MD @ 12/29/2020 7:38:09 AM (Electronically Signed)
[2020-12-29] MEDS ORDERED: diphenhydrAMINE 50 MG/ML SDV IVPUSH ONE (07:42)
[2020-12-29 08:21] VITALS: BP 158/74; PULSE 61
[2020-12-29] MEDS ORDERED: Lactated Ringers 1,000 ML IV ONE (08:34)
== END 2020-12-29 09:50 | disposition home or self-care (01) ==
LOC: JP.ED 06:37
DX: R42 Dizziness and giddiness (principal); I10 Essential (primary) hypertension; J45.909 Unspecified asthma, uncomplicated; Z88.5 Allergy status to narcotic agent; Z79.899 Other long term (current) drug therapy
CPT/HCPCS: 36415; 70450; 80053; 85025; 86140; 96374; 96375; 99285; A9270; J0780; J1200; J7120

== ENCOUNTER 2022-10-28 07:02 | Day surgery (SDC) | payer MEDICARE ==
[~2022-10-28 07:02] MED LIST changes: -Lactated Ringers 1,000 ML IV SCH; +Propofol 200 MG/20 ML SDV ONE; -ceFAZolin 2 GM in Sodium Chloride 0.9% 100 ML IV ONE; -ceFAZolin 2 GM in Sodium Chloride 0.9% 50 ML IV ONE; +fentaNYL 100 MCG/2 ML SDV ONE
[2022-10-28] MEDS ORDERED: Sodium Chloride 0.9% 1,000 ML IV SCH (08:15)
[2022-10-28 10:29] VITALS: BP 199/98; PULSE 73
== END 2022-10-28 10:49 | disposition home or self-care (01) ==
LOC: JP.SDS 07:02
PROVIDERS: ATTEND Surgery
DX: Z12.11 Encounter for screening for malignant neoplasm of colon (principal); K63.5 Polyp of colon; E66.9 Obesity, unspecified; I10 Essential (primary) hypertension; Z68.32 Body mass index [BMI] 32.0-32.9, adult
CPT/HCPCS: 45385; J2704; J3010; J7030

== ENCOUNTER 2023-07-18 08:49 | Inpatient (IN) | payer MEDICARE ==
[~2023-07-18 08:49] MED LIST changes: +Midazolam 1 MG/ML 2 ML SDV ONE
[2023-07-18] MEDS ORDERED: Bupivacaine 0.5% 30 ML SDV ONE (08:51)
[2023-07-18 09:24] LABS: HEMATOCRIT 44.8 % (34.3-46.0); HEMOGLOBIN 15.2 g/dL (11.2-15.5); MEAN CORPUSCULAR HEMOGLOBIN 30.5 pg (31.6-35.5); MEAN CORPUSCULAR HGB CONC 33.9 g/dL (31.6-35.5); RED BLOOD CELL COUNT 4.98 M/uL (3.77-5.24); WHITE BLOOD CELL COUNT,WBC 5.5 K/uL (3.2-11.0)
[2023-07-18] MEDS: Nozin Nasal Sanitizer NASBOTH SCH ×2 (09:45→20:11)
[2023-07-18] MEDS: Lactated Ringers 1,000 ML IV SCH (09:45)
[2023-07-18 09:51] LABS: ALANINE AMINOTRANSFERASE,ALT 23 U/L (12-78); ALBUMIN 3.7 g/dL (3.4-5.0); ALKALINE PHOSPHATASE 111 U/L (46-116); ANION GAP 7.4 mmol/L (5.0-14.0); ASPARTATE AMNIOTRANSFERASE,AST 20 U/L (15-37); BILIRUBIN TOTAL 0.9 mg/dL (0.2-1.0); BLOOD UREA NITROGEN,BUN 15 mg/dL (7-18); CALCIUM 9.3 mg/dL (8.5-10.1); CARBON DIOXIDE,CO2 29 mmol/L (21-32); CHLORIDE,CL 105 mmol/L (100-108); CREATININE 0.9 mg/dL (0.6-1.0); EST CRCL DRUG DOSING (CG) 60.07 mL/min; ESTIMATED GFR 68 mL/min (>60); GLUCOSE RANDOM 104 mg/dL (74-106); PROTEIN TOTAL,TP 7.6 g/dL (6.4-8.2); SODIUM,NA 141 mmol/L (140-148)
[2023-07-18] MEDS: Scopalamine 1mg/3day Transdermal Patch TOP SCH (10:27)
[2023-07-18] MEDS: ceFAZolin 2 GM in Premix Bag 1 BAG IV ONE (10:50)
[2023-07-18] MEDS: Tranexamic Acid 1,000 MG in Sodium Chloride 0.9% 50 ML IV ONE (11:10)
[2023-07-18] MEDS ORDERED: Propofol 200 MG/20 ML SDV ONE ×3 (11:39→13:16)
[2023-07-18] MEDS ORDERED: Magnesium Hydroxide 400 MG/5 ML Susp 30 ML Cup PO PRN (13:47)
[2023-07-18] MEDS ORDERED: oxyCODONE 5 MG Tab PO PRN (13:49)
[2023-07-18] MEDS ORDERED: Albuterol 6.7 GM Inhaler INH PRN (13:50)
[2023-07-18] MEDS ORDERED: METRONIDAZOLE TP PRN (13:50)
[2023-07-18] MEDS: Bupivacaine 0.5% 50 ML MDV ONE (13:58)
[2023-07-18] MEDS: Ketorolac 15 MG/ML SDV IVPUSH PRN (14:54)
[2023-07-18] MEDS: Sodium Chloride 0.9% 1,000 ML IV SCH (14:55)
[2023-07-18] MEDS: Ondansetron 4 MG/2 ML SDV IVPUSH PRN (14:55)
[2023-07-18] MEDS: ceFAZolin 2 GM in Premix Bag 1 BAG IV SCH (16:59)
[2023-07-18] MEDS: Acetaminophen 325 MG Tab PO SCH (16:59)
[2023-07-18] MEDS: Prochlorperazine 10 MG/2 ML SDV IVPUSH PRN (17:06)
[2023-07-18] MEDS: Formoterol/Mometasone 200-5 MCG 8.8 GM Inhaler IH SCH (20:09)
[2023-07-18] MEDS: Montelukast 10 MG Tab PO SCH (20:10)
[2023-07-19] MEDS: oxyCODONE 5 MG Tab PO PRN (08:40)
[2023-07-19] MEDS: Multivitamins with Iron/Calcium/Folic Acid/Minerals Tab PO SCH (08:50)
[2023-07-19] MEDS: Fish Oil/Omega-3 Fatty Acids 1 Gm Cap PO SCH (08:51)
[2023-07-19] MEDS: Aspirin 325 MG Tab.EC PO SCH (08:51)
[2023-07-19] MEDS: Zinc Sulfate 220 MG Cap PO SCH (08:51)
[2023-07-19] MEDS: Cholecalciferol (Vitamin D3) 25 MCG Tab PO SCH (08:51)
[2023-07-19] MEDS: Magnesium Oxide 400 MG Tab PO SCH (08:51)
[2023-07-19] MEDS: Losartan 50 MG Tab PO SCH (08:52)
[2023-07-19] MEDS ORDERED: PEPR EXT PO SCH (09:00)
[2023-07-19] MEDS ORDERED: TURMERIC EXT PO SCH (09:00)
[2023-07-19] MEDS ORDERED: TURMERIC PO SCH (09:00)
[2023-07-19] MEDS ORDERED: [UNRECOGNIZED DRUG - OTHER] PO SCH (09:00)
[2023-07-19] MEDS ORDERED: Fluticasone NASAL Spray 16 GM Bottle NASBOTH SCH (17:15)
[2023-07-20 05:50] VITALS: PULSE 84
[2023-07-20] MEDS: Docusate Sodium 100 MG Cap PO PRN (07:21)
[2023-07-20 09:32] VITALS: BP 151/85
== END 2023-07-20 13:11 | disposition home or self-care (01) | DRG 465 ==
LOC: JP.SDS 08:49 → JP.MS 13:47 → JP.SDS 07-19 17:23
PROVIDERS: ADMIT Physician Assistant; ATTEND Physician Assistant
PROC: 0JBP0ZZ Excision of Left Lower Leg Subcutaneous Tissue and Fascia, Open Approach (ICD-10-PCS; 2023-07-18)
PROC: 0SRC0J9 Replacement of Right Knee Joint with Synthetic Substitute, Cemented, Open Approach (ICD-10-PCS; principal; 2023-07-18 09:30)
PROC: 0SBD0ZZ Excision of Left Knee Joint, Open Approach (ICD-10-PCS; 2023-07-18 09:30)
DX: M17.11 Unilateral primary osteoarthritis, right knee (principal); M65.862 Other synovitis and tenosynovitis, left lower leg; I10 Essential (primary) hypertension; Z87.442 Personal history of urinary calculi; Z96.652 Presence of left artificial knee joint
CPT/HCPCS: 36415; 73560-26-RT; 73560-RT; 80053; 85027; 86850; 86900; 86901; 93005; 93010; 97110-GP; 97116-GP; 97161-GP; 97165-GO; 97530-GP; A9270-GY; C1713; C1776; J0665; J0690; J0780; J1885; J2250; J2405; J2704; J3010; J3490; J7030; J7120